=== PATIENT | female | born 1955 | race Caucasian/White ===

== ENCOUNTER 2016-04-22 17:19 | Observation (INO) ==
[2016-04-22] MEDS ORDERED: Ipratropium/Albuterol Neb 3 ML IH ONE (17:32)
[2016-04-22] MEDS ORDERED: PredniSONE 20 MG TABLET PO ONE (17:32)
--- NOTE | 2016-04-22 17:32 | Emergency Department Note ---
Disposition Clinical Impression: Acute exacerbation of chronic obstructive airways disease, Tachycardia Disposition: Admitted As Inpatient Condition: Fair URI/Sore Throat HPI - General Chief Complaint: ED Shortness of Breath/Dyspnea Stated Complaint: fever, productive cough, short of breath Time Seen by Provider: 04/22/16 17:28 Source: patient, family Mode of arrival: private vehicle Limitations: no limitations Nursing Notes Reviewed: Yes Vital Signs Reviewed: Yes - History of Present Illness HPI Narrative: Patient relates that for a couple days she has had increased shortness of breath , cough and shakiness. She states her cough is productive of a thick yellow phlegm. She states she has spiked a temperature as high as 101.1. She reports she has coughed to the point of vomiting a couple times and has had some nausea. She denies any abdominal or back pain. She denies diarrhea or any lower extremity swelling, immobilization or injury. She denies any chest pain other than with cough or deep breath. She states this feels like she has had before with her COPD. She is doing her routine inhalers and aerosols twice a day. She states she is finished an unknown antibiotic about a week ago but has had again increased respiratory symptoms. She states she was not on a course of a steroid with her last COPD exacerbation. The patient arrives on her own oxygen saturating at 95%. The patient is tachycardic with a heart rate around 140. It appears that her normal heart rate is about 110-120. Pt Subjective Complaint: fever, cough Onset (ago): day(s) Duration: gradually worsening Severity: moderate Improves with: vaporizer Worsens with: exertion, night If sputum, description: yellow Context: sick contacts, multiple patients with similar complaints Associated symptoms: Reports: fever, chills, cough, chest pain (With deep breath or cough only), shortness of breath, nausea, vomiting (With coughing). Denies: voice changes, myalgias, diaphoresis, headache, rhinorrhea, nasal congestion, sore throat, stiff neck, abdominal pain, diarrhea, dysuria, rash, epistaxis, ear pain Treatments prior to arrival: "cold medicine" - Related Data Home Medications Medication Instructions Recorded Confirmed Fluticasone Propionate [Flovent 1 puff IH BID 11/03/15 04/22/16 Diskus] Furosemide [Lasix] 40 mg PO DAILY 11/03/15 04/22/16 Levalbuterol [Xopenex INH] 2 puff IH Q6H PRN 11/03/15 04/22/16 Losartan [Cozaar] 25 mg PO DAILY 11/03/15 04/22/16 Montelukast [Singulair] 10 mg PO DAILY 11/03/15 04/22/16 Oxybutynin [Ditropan] 5 mg PO DAILY 11/03/15 04/22/16 Roflumilast [Daliresp] 500 mcg PO DAILY 11/03/15 04/22/16 Salmeterol Xinafoate [Serevent 1 puff IH BID 11/03/15 04/22/16 Diskus] Simvastatin [Zocor] 20 mg PO HS 11/03/15 04/22/16 Tiotropium [Spiriva] 18 mcg IH DAILY 11/03/15 04/22/16 Albuterol Neb [Proventil Neb] 2.5 mg IH TID 04/22/16 04/22/16 BuPROPion SR (12 HR) [Wellbutrin 150 mg PO BID 04/22/16 04/22/16 SR] Cholecalciferol (Vitamin D3) 1,000 unit PO DAILY 04/22/16 04/22/16 [Vitamin D] DiphenhydraMINE [Benadryl] 25 mg PO Q6H PRN 04/22/16 04/22/16 Fluticasone Propionate Nasal 1 spray NS DAILY PRN 04/22/16 04/22/16 [Flonase] HYDROcodone/Acet 7.5/325 mg [[place] 1 tab PO Q6H PRN 04/22/16 04/22/16 7.5-325 mg] Ibuprofen [Motrin] 600 mg PO Q6HR PRN 04/22/16 04/22/16 Metformin HCl [Glucophage] 1,000 mg PO BID 04/22/16 04/22/16 Nystatin POWDER [Nystop] 1 appl TP DAILY PRN 04/22/16 04/22/16 Potassium Chloride [Klor-Con 10] 10 meq PO DAILY 04/22/16 04/22/16 PredniSONE 10 mg PO DAILY 04/22/16 04/22/16 Ranitidine HCl [Zantac] 150 mg PO BID 04/22/16 04/22/16 Sertraline [Zoloft] 50 mg PO DAILY 04/22/16 04/22/16 Previous Rx's Medication Instructions Recorded Ascorbic Acid [Vitamin C] 500 mg PO DAILY #30 tablet 11/07/15 Ferrous Sulfate 325 mg PO DAILY #30 tablet 11/07/15 Fluconazole [Diflucan] 150 mg PO DAILY #5 tablet 11/07/15 Lactobacillus [Culturelle] 1 each PO BID #10 cap.sprink 11/07/15 Metoprolol XL (24 HR) Succ [Toprol 25 mg PO DAILY #30 tab.er.24h 11/07/15 XL] Allergies Allergy/AdvReac Type Severity Reaction Status Date / Time acetylcysteine Allergy Hives Verified 11/03/15 09:20 [From Mucomyst] ciprofloxacin [From Cipro] Allergy Hives Verified 11/03/15 09:20 clarithromycin [From Biaxin] Allergy Hives Verified 11/03/15 09:20 Erythromycin Base Allergy Hives Verified 11/03/15 09:26 fluticasone Allergy Hives Verified 11/03/15 09:26 [From Advair Diskus] lorazepam [From Ativan] Allergy Hives Verified 11/03/15 09:20 salmeterol Allergy Hives Verified 11/03/15 09:26 [From Advair Diskus] All systems ED: reviewed and negative except as stated. URI PMH - Past Medical History Medical history: Reports: CHF, COPD, diabetes, hyperlipidemia, hypertension Psychiatric history: Reports: no psych history - Social History Smoking Status: Former smoker Alcohol use: Reports: none Drug use: Reports: none Physical Exam - General Limitations: no limitations General appearance: alert, in no apparent distress - Head Head exam: atraumatic, normocephalic, normal inspection - Eye Eye exam: Present: normal appearance, PERRL, EOMI - ENT ENT exam: normal exam, normal oropharynx, mucous membranes moist - Neck Neck exam: Present: normal inspection, full ROM, trachea midline - Chest Chest inspection: Present: normal inspection, symmetric chest wall rise. Absent : tenderness - Respiratory Respiratory exam: Present: wheezes, prolonged expiratory phase. Absent: respiratory distress, stridor, accessory muscle use - Cardiovascular Cardiovascular exam: Present: regular rate, normal rhythm, tachycardia, normal heart sounds - Abdominal Exam Abdominal exam: Present: soft, Non-Tender, normal bowel sounds. Absent: tenderness, distention, guarding, rebound, rigidity - Extremities Exam Extremities exam: Present: normal inspection, full ROM, normal capillary refill. Absent: tenderness, pedal edema, calf tenderness - Expanded Lower Extremity Exam Neurovascular/Tendon exam: Present: normal capillary refill. Absent: motor deficit, sensory deficit, tendon deficit Gait: observed and normal - Back Exam Back exam: Present: normal inspection, full ROM. Absent: tenderness, CVA tenderness (R), CVA tenderness (L) - Neurological Exam Neurological exam: Present: alert, oriented X3, normal gait. Absent: motor sensory deficit - Psychiatric Psychiatric exam: Present: normal affect, normal mood - Skin Skin exam: Present: warm, dry, intact, normal color. Absent: diaphoresis, pallor Course Course Narrative: 1849: I discussed care with the patient and family. I subsequently discussed care with Dr. Nair agrees with her observation for continued outpatient treatment. Further orders are obtained and she is coordinated for observation. [facility] bed management has been contacted for bed placement. Vital Signs Temperature 98.9 F 04/22/16 17:20 Pulse Rate 141 04/22/16 17:20 Respiratory Rate 22 04/22/16 17:20 Blood Pressure 159/93 04/22/16 17:20 O2 Sat by Pulse Oximetry 95 04/22/16 17:20 Temperature 98.9 F 04/22/16 17:20 Pulse Rate 136 04/22/16 19:02 Respiratory Rate 17 04/22/16 19:02 Blood Pressure 167/70 04/22/16 19:02 O2 Sat by Pulse Oximetry 100 04/22/16 19:02 Oxygen Delivery Oxygen Delivery Nasal Cannula Upper Respiratory Infection - Differential Diagnosis Differential Diagnosis: Likely: upper respiratory infection, other viral infection, bronchitis, pneumonia - Medical Records Medical records reviewed: Yes I reviewed the patient's medical records. CT/CT chest w con IMPRESSION: 1. Improved left upper lobe consolidation with residual spiculated density likely related to a residual scar. An additional chest CT follow-up in 3 months is recommended to assure no underlying malignancy. 2. Emphysema. 3. Incidental note is made of atherosclerotic vascular calcifications and old granulomatous disease. 4. The previous CT scan question left suprahilar soft tissue fullness. No left hilar lymphadenopathy is identified on the current exam. D/ / Oleksandr Navas MD / Oleksandr Navas MD - Lab Data Lab results reviewed: Yes I reviewed the patient's lab results. Result diagrams: 04/22/16 18:10 04/22/16 18:10 Lab Results 04/22/16 04/22/16 04/22/16 Range/Units 18:10 18:10 18:10 WBC 11.2 H (4.3-11.1) K/mcL RBC 3.87 (3.82-4.97) M/mcL Hgb 11.2 L (11.5-15.4) g/dL Hct 35.4 (35.3-44.9) % MCV 91.5 (83.0-100.0) fL MCH 28.9 (28.0-33.3) pg MCHC 31.6 (31.6-35.5) g/dL RDW 13.9 (11.5-14.5) % Plt Count 365 (140-400) K/mcL MPV 9.1 L (9.4-12.4) fL Immature Gran % 0.8 (0-4) % Seg Neutrophils % 75.4 % Lymphocytes % 14.5 % Monocytes % 8.7 % Eosinophils % 0.4 % Basophils % 0.2 % Neutrophils # 8.4 (1.6-8.9) K/mcL Lymphocytes # 1.6 (0.6-4.6) K/mcL Monocytes # 1.0 (0.0-1.3) K/mcL Eosinophils # 0.0 (0.0-0.6) K/mcL Basophils # 0.0 (0.0-0.2) K/mcL Sodium 138 (136-145) mEq/L Potassium 3.8 (3.5-4.5) mEq/L Chloride 102 (98-109) mEq/L Carbon Dioxide 24 (19-29) mEq/L BUN 7 (7-20) mg/dL Creatinine 0.78 (0.57-1.11) mg/dL Est GFR ( Amer) > 60 (> 60) Est GFR (Non-Af Amer) > 60 (> 60) BUN/Creatinine Ratio 9 (6-26) Glucose 151 H (70-99) mg/dL Calculated Osmolality 287 (280-300) Calcium 9.2 (8.6-10.8) mg/dL Troponin I 0.01 (0-0.03) ng/mL - Radiology Data Radiology results reviewed: Yes I reviewed the patient's radiology results. Single view chest x-ray is performed. This does not demonstrate evidence for infiltrate, effusion, pneumothorax, foreign body or heart failure. The cardiac silhouette is normal. Patient has some fullness in the left hilum which is unchanged from previous x-rays or CAT scans. This will scar and hyperexpansion consistent with COPD. I do not see abnormality to the osseous structures of the chest. This is on my interpretation. Impressions Chest X-Ray 04/22/16 17:32 IMPRESSION: COPD with no acute pneumonia. D/ / 04/22/2016 17:53:45 Jos Silveira MD / jie Interpreting Provider: Jos Silveira MD - EKG Data EKG attestation: Yes I reviewed and interpreted this EKG. EKG shows normal: sinus rhythm, axis, intervals, QRS complexes, ST-T waves Rate: tachycardia (131) QRS morphology: poor R-wave progression Interpretation: no acute changes
[2016-04-22] MEDS ORDERED: 0.9 % Sodium Chloride 1,000 ML IVC ONE (17:37)
[2016-04-22 18:18] LABS: Basophils % 0.2 %; Eosinophils % 0.4 %; Hematocrit 35.4 % (35.3-44.9); Hemoglobin 11.2 g/dL (11.5-15.4); Immature Granulocytes % 0.8 % (0-4); Lymphocytes # 1.6 K/mcL (0.6-4.6); Lymphocytes % 14.5 %; Mean Corpuscular HGB Conc 31.6 g/dL (31.6-35.5); Mean Corpuscular Hemoglobin 28.9 pg (28.0-33.3); Mean Corpuscular Volume 91.5 fL (83.0-100.0); Mean Platelet Volume 9.1 fL (9.4-12.4); Monocytes % 8.7 %; Neutrophils # 8.4 K/mcL (1.6-8.9); Platelet Count 365 K/mcL (140-400); Red Blood Count 3.87 M/mcL (3.82-4.97); Red Cell Distribution Width 13.9 % (11.5-14.5); Segmented Neutrophils % 75.4 %
[2016-04-22 18:33] LABS: BUN/Creatinine Ratio 9 (6-26); Blood Urea Nitrogen 7 mg/dL (7-20); Calcium 9.2 mg/dL (8.6-10.8); Carbon Dioxide 24 mEq/L (19-29); Chloride 102 mEq/L (98-109); Glucose 151 mg/dL (70-99); Osmolality,Calculated 287 (280-300); Potassium 3.8 mEq/L (3.5-4.5); Sodium 138 mEq/L (136-145); eGFR For African Americans > 60 (> 60); eGFR For Non-African Americans > 60 (> 60)
[2016-04-22] MEDS ORDERED: Naloxone 0.4 MG/ML INJ IVP PRN (18:46)
[2016-04-22] MEDS ORDERED: Ibuprofen 600 MG TABLET PO PRN (18:48)
[2016-04-22] MEDS ORDERED: Nystatin POWDER 30 GM BOTTLE TP PRN (18:48)
[2016-04-22] MEDS ORDERED: Albuterol 2.5 MG/3 ML NEBULIZER IH SCH (21:00)
[2016-04-22] MEDS: Lactobacillus 1 EACH CAP.SPRINK PO SCH (21:57)
[2016-04-22] MEDS: *HR* Metformin 500 MG TABLET PO SCH (21:57)
[2016-04-22] MEDS: Famotidine 20 MG TABLET PO SCH (21:57)
[2016-04-22] MEDS: BuPROPion SR (12 HR) 150 MG TABLET PO SCH (21:58)
[2016-04-22] MEDS: *HR* HYDROcodone/Acet 7.5/325 mg TABLET PO PRN (21:58)
[2016-04-22] MEDS: 0.9 % Sodium Chloride 1,000 ML IVC SCH (22:21)
[2016-04-22] MEDS: Ipratropium/Albuterol Neb 3 ML IH SCH (22:22)
[2016-04-23] MEDS: Ipratropium/Albuterol Neb 3 ML IH SCH ×2 (04:14→09:46)
[2016-04-23] MEDS ORDERED: PredniSONE 20 MG TABLET PO SCH (08:00)
[2016-04-23] MEDS: *HR* HYDROcodone/Acet 7.5/325 mg TABLET PO PRN ×3 (08:45→21:08)
[2016-04-23] MEDS: Lactobacillus 1 EACH CAP.SPRINK PO SCH ×2 (08:47→20:38)
[2016-04-23] MEDS: Ascorbic Acid 500 MG TABLET PO SCH (08:47)
[2016-04-23] MEDS: Furosemide 20 MG TABLET PO SCH (08:48)
[2016-04-23] MEDS: BuPROPion SR (12 HR) 150 MG TABLET PO SCH ×2 (08:48→20:38)
[2016-04-23] MEDS: Cholecalciferol (D-3) 1,000 UNIT TABLET PO SCH (08:48)
[2016-04-23] MEDS: *HR* Metformin 500 MG TABLET PO SCH ×2 (08:49→20:38)
[2016-04-23] MEDS: (Roflumilast [Daliresp] 500 MCG) PO SCH (08:49)
[2016-04-23] MEDS: Famotidine 20 MG TABLET PO SCH (08:49)
[2016-04-23] MEDS: Metoprolol XL (24 HR) Succ 25 MG TAB.ER.24H PO SCH (08:49)
[2016-04-23] MEDS: Fluconazole 100 MG TABLET PO SCH (08:49)
[2016-04-23] MEDS: 0.9 % Sodium Chloride 1,000 ML IVC SCH (08:57)
--- NOTE | 2016-04-23 11:26 | Internal Med History&Physical ---
Date of Encounter: 04/23/16 Time of Encounter: 11:00 Assessment and Plan (1) Acute exacerbation of chronic obstructive airways disease Current visit: Yes Status: Acute She has been started on Augmentin and prednisone. Further workup will be done as needed. (2) Tachycardia Current visit: Yes Status: Acute We will monitor heart rate. Continue Toprol-XL. (3) Anemia Current visit: No Status: Acute Improved since discharge in October 2015. We will recheck anemia testing in a.m. Qualifiers: Anemia type: unspecified type Qualified Code(s): D64.9 - Anemia, unspecified (4) DM type 2 (diabetes mellitus, type 2) Current visit: No Status: Chronic Hemoglobin A1c was 7.5% on 11/04/2015. We will recheck in a.m. Continue Glucophage and do Accu-Cheks with SSI. 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 Qualifiers: Hypertension type: essential hypertension Qualified Code(s): I10 - Essential (primary) hypertension (6) Lung nodule Current visit: Yes Status: Acute We will order chest CT. Internal Medicine - H&P: HPI Chief complaint: Dyspnea Admitted From: Home Plans for Post Hospital Care: Home History of present illness: Ms. Carmen is a 61 year old female who came to emergency room stating she had increasing dyspnea the preceding week with acute worsening the day of admission. He had cough productive of thick yellow sputum and diffuse myalgias. She was evaluated emergency room and felt to have exacerbation of COPD. She was admitted to [facility] floor for ongoing care needs. She was hospitalized last at [facility] October 30.Her respiratory history is significant for having smoked from age [age] up to 2 packs per day. She has a diagnosis of COPD and wears oxygen at home 07/10. She has a diagnosis of SANDY and wear CPAP at bedtime. Her last chest CT was 11/27/2015. It was recommended a follow-up scan be done in 3 months to monitor a spiculated nodule in the left upper lobe. Past Med Surg Social Fam HX - Past Medical History Medical history: CHF, COPD, diabetes, hyperlipidemia, hypertension Psychiatric history: no psych history - Past Surgical History Surgical History: other - Social History Smoking Status: Former smoker Smokeless Tobacco Status: No Alcohol use: none Drug use: none - Family History Mother Living Status: Hx Family Cardiac Disorders: Yes Hx Family Respiratory Disorders: Yes Hx Family Endocrine Disorder: Yes Internal Medicine - H&P: Meds Fluticasone Propionate [Flovent Diskus] 1 puff IH BID 11/03/15 [History] Furosemide [Lasix] 40 mg PO DAILY 11/03/15 [History] Levalbuterol [Xopenex INH] 2 puff IH Q6H PRN 11/03/15 [History] Losartan [Cozaar] 25 mg PO DAILY 11/03/15 [History] Montelukast [Singulair] 10 mg PO DAILY 11/03/15 [History] Oxybutynin [Ditropan] 5 mg PO DAILY 11/03/15 [History] Roflumilast [Daliresp] 500 mcg PO DAILY 11/03/15 [History] Salmeterol Xinafoate [Serevent Diskus] 1 puff IH BID 11/03/15 [History] Simvastatin [Zocor] 20 mg PO HS 11/03/15 [History] Tiotropium [Spiriva] 18 mcg IH DAILY 11/03/15 [History] Ascorbic Acid [Vitamin C] 500 mg PO DAILY #30 tablet 11/07/15 [Rx] Ferrous Sulfate 325 mg PO DAILY #30 tablet 11/07/15 [Rx] Fluconazole [Diflucan] 150 mg PO DAILY #5 tablet 11/07/15 [Rx] Lactobacillus [Culturelle] 1 each PO BID #10 cap.sprink 11/07/15 [Rx] Metoprolol XL (24 HR) Succ [Toprol XL] 25 mg PO DAILY #30 tab.er.24h 11/07/15 [ Rx] Albuterol Neb [Proventil Neb] 2.5 mg IH TID 04/22/16 [History] BuPROPion SR (12 HR) [Wellbutrin SR] 150 mg PO BID 04/22/16 [History] Cholecalciferol (Vitamin D3) [Vitamin D] 1,000 unit PO DAILY 04/22/16 [History] DiphenhydraMINE [Benadryl] 25 mg PO Q6H PRN 04/22/16 [History] Fluticasone Propionate Nasal [Flonase] 1 spray NS DAILY PRN 04/22/16 [History] HYDROcodone/Acet 7.5/325 mg [[place] 7.5-325 mg] 1 tab PO Q6H PRN 04/22/16 [ History] Ibuprofen [Motrin] 600 mg PO Q6HR PRN 04/22/16 [History] Metformin HCl [Glucophage] 1,000 mg PO BID 04/22/16 [History] Nystatin POWDER [Nystop] 1 appl TP DAILY PRN 04/22/16 [History] Potassium Chloride [Klor-Con 10] 10 meq PO DAILY 04/22/16 [History] PredniSONE 10 mg PO DAILY 04/22/16 [History] Ranitidine HCl [Zantac] 150 mg PO BID 04/22/16 [History] Sertraline [Zoloft] 50 mg PO DAILY 04/22/16 [History] Allergies acetylcysteine [From Mucomyst] Allergy (Verified 11/03/15 09:20) Hives ciprofloxacin [From Cipro] Allergy (Verified 11/03/15 09:20) Hives clarithromycin [From Biaxin] Allergy (Verified 11/03/15 09:20) Hives Erythromycin Base Allergy (Verified 11/03/15 09:26) Hives fluticasone [From Advair Diskus] Allergy (Verified 11/03/15 09:26) Hives lorazepam [From Ativan] Allergy (Verified 11/03/15 09:20) Hives salmeterol [From Advair Diskus] Allergy (Verified 11/03/15 09:26) Hives All Systems PM: A 10-system review of systems was performed and is negative for pertinent findings except as documented above in the HPI. Review of systems: Gen.: Her weight has been stable past few months Cardiovascular: She has history of hypertension and congestive heart failure. She claims she had a heart catheter approximately 2010 at [facility] that did not further intervention. She denies DVT or pulmonary embolus Respiratory: As per history of present illness GI: She has gallstones but cannot have cholecystectomy secondary to poor surgical status. She denies disorders of her liver or exocrine pancreas : She denies hematuria dysuria or kidney stones Neurologic: She denies large distribution strokes or seizures Endocrine: She was diagnosed with DM 2 approximately 2001. She has hyperlipidemia but no known thyroid disease Hematology/oncology: She denies blood disorders or cancers. She had anemia on emergency room labs at the October hospitalization and was prescribed ferrous sulfate and vitamin C at discharge.. Psychiatric: She has anxiety and depression Musk skeletal: She has DJD. She has had steroid injections in her knees and shoulders. - Constitutional Vitals: Temp Pulse Resp BP Pulse Ox 98.2 F 110 18 125/60 94 L 04/23/16 10:58 04/23/16 10:58 04/23/16 10:58 04/23/16 10:58 04/23/16 10:58 Exam: Gen.: She is a well-developed well-nourished female who appears in no severe distress at present time sitting in a chair HEENT: Head is atraumatic and normocephalic. Eyes: EOMI. There is no scleral icterus. Mouth: Mucosa is moist. Neck: Supple and nontender. There is no thyromegaly or adenopathy noted. Heart: Regular without murmurs gallops or ectopics. Lungs: No wheezes or crackles are heard. She has diminished breath sounds diffusely Abdomen: Soft and nontender. No masses or guarding are noted. Exam is limited because she is in the seated position Extremities: There is no cyanosis edema or clubbing noted. Dorsalis pedis and posterior tibial pulses are 1-2 over 2 bilaterally. Neurologic: Mental status: She is talkative and a good historian. Cranial nerves: Smile is symmetric. Forehead wrinkles bilaterally. Tongue protrudes midline. EOMI. Motor: There is no pronator drift. Cerebellar: Finger to nose is intact bilaterally. Skin: Warm and dry Internal Med - H&P Results - Labs CBC & Chem 7: 04/22/16 18:10 04/22/16 18:10 - VTE Documentation of Mechanical Device: Graduated compression elastic hosiery
[2016-04-23] MEDS ORDERED: Famotidine 20 MG TABLET PO PRN (11:40)
--- NOTE | 2016-04-23 15:24 | Electrocardiograph Report ---
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
[2016-04-23] MEDS: PredniSONE 10 MG TABLET PO SCH (16:12)
[2016-04-23] MEDS ORDERED: Levalbuterol Neb 1.25 MG/3 ML ONE (16:17)
[2016-04-23] MEDS: XOPENEX IH SCH (16:23)
[2016-04-23] MEDS: Tiotropium 18 MCG inhalation IH SCH (16:26)
[2016-04-23] MEDS: Budesonide/Formoterol 160/4.5 MDI IH SCH ×2 (16:29→21:11)
[2016-04-23] MEDS: Levalbuterol Neb 1.25 MG/3 ML IH PRN (21:10)
[2016-04-24] MEDS: *HR* HYDROcodone/Acet 7.5/325 mg TABLET PO PRN ×2 (04:19→17:18)
[2016-04-24] MEDS: Levalbuterol Neb 1.25 MG/3 ML IH PRN ×4 (04:27→21:43)
[2016-04-24 06:03] LABS: Basophils % 0.2 %; Hematocrit 31.3 % (35.3-44.9); Hemoglobin 10.2 g/dL (11.5-15.4); Immature Granulocytes % 0.5 % (0-4); Lymphocytes % 23.9 %; Mean Corpuscular HGB Conc 32.6 g/dL (31.6-35.5); Mean Corpuscular Hemoglobin 29.2 pg (28.0-33.3); Mean Corpuscular Volume 89.7 fL (83.0-100.0); Mean Platelet Volume 9.2 fL (9.4-12.4); Monocytes % 11.7 %; Neutrophils # 5.4 K/mcL (1.6-8.9); Platelet Count 344 K/mcL (140-400); Red Blood Count 3.49 M/mcL (3.82-4.97); Red Cell Distribution Width 14.3 % (11.5-14.5); Segmented Neutrophils % 63.7 %
[2016-04-24 06:32] LABS: Alanine Aminotransferase 17 Units/L (0-55); Albumin 3.5 g/dL (3.5-5.0); Albumin/Globulin Ratio 1.2 (1.1-2.2); Alkaline Phosphatase 61 Units/L (38-126); Aspartate Amino Transferase 24 Units/L (5-34); BUN/Creatinine Ratio 16 (6-26); Bilirubin,Total 0.2 mg/dL (0.2-1.2); Blood Urea Nitrogen 12 mg/dL (7-20); Carbon Dioxide 24 mEq/L (19-29); Chloride 105 mEq/L (98-109); Glucose 145 mg/dL (70-99); Osmolality,Calculated 296 (280-300); Sodium 142 mEq/L (136-145); Total Protein 6.5 g/dL (6.0-8.3); eGFR For African Americans > 60 (> 60); eGFR For Non-African Americans > 60 (> 60)
[2016-04-24] MEDS: XOPENEX IH SCH ×3 (08:06→21:55)
[2016-04-24 08:39] LABS: Hemoglobin A1C 7.6 %
[2016-04-24] MEDS: *HR* Metformin 500 MG TABLET PO SCH ×2 (09:22→22:38)
[2016-04-24] MEDS: Fluconazole 100 MG TABLET PO SCH (09:23)
[2016-04-24] MEDS: BuPROPion SR (12 HR) 150 MG TABLET PO SCH ×2 (09:24→22:39)
[2016-04-24] MEDS: Lactobacillus 1 EACH CAP.SPRINK PO SCH ×2 (09:25→22:39)
[2016-04-24] MEDS: Metoprolol XL (24 HR) Succ 25 MG TAB.ER.24H PO SCH (09:25)
[2016-04-24] MEDS: Ascorbic Acid 500 MG TABLET PO SCH (09:26)
[2016-04-24] MEDS: PredniSONE 10 MG TABLET PO SCH ×2 (09:26→17:18)
[2016-04-24] MEDS: Furosemide 20 MG TABLET PO SCH (09:27)
[2016-04-24] MEDS: Cholecalciferol (D-3) 1,000 UNIT TABLET PO SCH (09:27)
[2016-04-24] MEDS: (Roflumilast [Daliresp] 500 MCG) PO SCH (09:27)
[2016-04-24] MEDS: Ondansetron 4 MG/2 ML VIAL IVP PRN ×2 (09:28→17:19)
[2016-04-24] MEDS: Budesonide/Formoterol 160/4.5 MDI IH SCH ×2 (09:41→21:42)
[2016-04-24] MEDS: Tiotropium 18 MCG inhalation IH SCH (09:41)
[2016-04-24 10:37] LABS: Folate 15.2 ng/mL (7.0-31.4)
--- NOTE | 2016-04-24 12:11 | Internal Med Progress Note ---
Date of Encounter: 04/24/16 Time of Encounter: 12:00 - Assessment and plan (1) Acute exacerbation of chronic obstructive airways disease Current Visit: Yes Status: Acute Assessment and plan: April 24. Continue Augmentin and prednisone (2) Tachycardia Current Visit: Yes Status: Acute Assessment and plan: April 24. Continue Toprol (3) Anemia Current Visit: No Status: Acute Assessment and plan: April 24. Hemoglobin has decreased 10.2. B12 and folate levels are normal. Ferritin and iron studies are pending. Qualifiers: Anemia type: unspecified type Qualified Code(s): D64.9 - Anemia, unspecified (4) DM type 2 (diabetes mellitus, type 2) Current Visit: No Status: Chronic Assessment and plan: April 24. Hemoglobin A1c was 7.6 today. 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 Continue Toprol and Cozaar Qualifiers: Hypertension type: essential hypertension Qualified Code(s): I10 - Essential (primary) hypertension (6) Lung nodule Current Visit: Yes Status: Acute Assessment and plan: April 24. There was further decrease in size of the left upper lobe nodule consistent with postinflammatory/postinfectious scar compared to the October 2015 study. No further follow-up is necessary. - Subjective Interval history: April 24. She has no new complaints. She had nausea earlier but that is somewhat improved. She does not feel her breathing has significantly improved. - Constitutional Vitals: Temp Pulse Resp BP Pulse Ox 98.3 F 103 18 120/78 93 L 04/24/16 10:31 04/24/16 10:31 04/24/16 10:31 04/24/16 10:31 04/24/16 10:31 Exam: She is sitting on the bed resting comfortably. Her affect is bright and cheerful. She does not appear significantly dyspneic or tachypnea. Her extremities show no pitting edema. I reviewed her medications and lab results. Internal Medicine: Result - Labs CBC & Chem 7: 04/24/16 05:48 04/24/16 05:48 Labs: Short CBC 04/24/16 Range/Units 05:48 WBC 8.5 (4.3-11.1) K/mcL Hgb 10.2 L (11.5-15.4) g/dL Hct 31.3 L (35.3-44.9) % Plt Count 344 (140-400) K/mcL Neutrophils # 5.4 (1.6-8.9) K/mcL BMP 04/24/16 05:48 Sodium 142 Potassium 4.0 Chloride 105 Carbon Dioxide 24 BUN 12 Creatinine 0.76 Glucose 145 H Calcium 9.0 Liver Function 04/24/16 Range/Units 05:48 Total Bilirubin 0.2 (0.2-1.2) mg/dL AST 24 (5-34) Units/L ALT 17 (0-55) Units/L Alkaline Phosphatase 61 (38-126) Units/L Albumin 3.5 (3.5-5.0) g/dL - Impressions Impressions Chest CT 04/23/16 11:40 IMPRESSION: Continued decrease in size of the left upper lobe nodule which now measures 6 x 3 mm compatible with postinflammatory/postinfectious scar. No further follow-up is necessary. D/ / 04/23/2016 14:34:41 Jayce Rodas MD / [email or web address] Interpreting Provider: Jayce Rodas MD - VTE Documentation of Mechanical Device: Graduated compression elastic hosiery Consult Discharge Plan - Plan Referrals: Amanda Arnold [Primary Care Provider] - 1 week
[2016-04-24 13:40] LABS: % Iron Saturation 7 % (15-50); Iron 27 mcg/dL (50-170); Transferrin 290 mg/dL (180-382)
[2016-04-24 14:03] LABS: Ferritin 46 ng/ml (5-204)
[2016-04-25 05:30] LABS: Basophils % 0.2 %; Hemoglobin 11.6 g/dL (11.5-15.4); Immature Granulocytes % 0.4 % (0-4); Lymphocytes % 22.4 %; Mean Corpuscular HGB Conc 32.2 g/dL (31.6-35.5); Mean Corpuscular Hemoglobin 29.1 pg (28.0-33.3); Mean Corpuscular Volume 90.5 fL (83.0-100.0); Mean Platelet Volume 9.6 fL (9.4-12.4); Monocytes % 11.4 %; Platelet Count 384 K/mcL (140-400); Red Blood Count 3.98 M/mcL (3.82-4.97); Red Cell Distribution Width 14.3 % (11.5-14.5); Segmented Neutrophils % 65.6 %
[2016-04-25] MEDS: Levalbuterol Neb 1.25 MG/3 ML IH PRN (06:06)
[2016-04-25 06:54] VITALS: BP 117/75
[2016-04-25] MEDS: Cholecalciferol (D-3) 1,000 UNIT TABLET PO SCH (07:49)
[2016-04-25] MEDS: Fluconazole 100 MG TABLET PO SCH (07:49)
[2016-04-25] MEDS: Metoprolol XL (24 HR) Succ 25 MG TAB.ER.24H PO SCH (07:49)
[2016-04-25] MEDS: PredniSONE 10 MG TABLET PO SCH (07:50)
[2016-04-25] MEDS: Furosemide 20 MG TABLET PO SCH (07:50)
[2016-04-25] MEDS: Lactobacillus 1 EACH CAP.SPRINK PO SCH (07:50)
[2016-04-25] MEDS: *HR* Metformin 500 MG TABLET PO SCH (07:50)
[2016-04-25] MEDS: Ascorbic Acid 500 MG TABLET PO SCH (07:51)
[2016-04-25] MEDS: BuPROPion SR (12 HR) 150 MG TABLET PO SCH (07:51)
[2016-04-25] MEDS: *HR* HYDROcodone/Acet 7.5/325 mg TABLET PO PRN (07:51)
[2016-04-25] MEDS: Ondansetron 4 MG/2 ML VIAL IVP PRN (08:57)
--- NOTE | 2016-04-25 10:03 | Discharge Summary ---
Date of Encounter: 04/25/16 Time of Encounter: 09:45 - Discharge Diagnosis (1) Acute exacerbation of chronic obstructive airways disease Priority: Primary Status: Acute (2) Tachycardia Priority: Secondary Status: Acute (3) Anemia Priority: Secondary Status: Resolved Qualifiers: Anemia type: unspecified type Qualified Code(s): D64.9 - Anemia, unspecified (4) DM type 2 (diabetes mellitus, type 2) Priority: Secondary Status: Chronic Qualifiers: Diabetes mellitus complication status: without complication Diabetes mellitus parts counterman insulin use: without parts counterman use Qualified Code(s): E11.9 - Type 2 diabetes mellitus without complications (5) Hypertension Priority: Secondary Status: Chronic Qualifiers: Hypertension type: essential hypertension Qualified Code(s): I10 - Essential (primary) hypertension (6) Lung nodule Priority: Secondary Status: Resolved - Discharge Medications Prescriptions: Amoxicillin/Clavulanate [Augmentin] 875 mg PO BIDWM #6 tablet Lactobacillus [Culturelle] 1 each PO BID #6 cap.sprink Home Medications: Fluticasone Propionate [Flovent Diskus] 1 puff IH BID 11/03/15 [History] Furosemide [Lasix] 40 mg PO DAILY 11/03/15 [History] Levalbuterol [Xopenex INH] 2 puff IH Q6H PRN 11/03/15 [History] Losartan [Cozaar] 25 mg PO DAILY 11/03/15 [History] Montelukast [Singulair] 10 mg PO DAILY 11/03/15 [History] Oxybutynin [Ditropan] 5 mg PO DAILY 11/03/15 [History] Roflumilast [Daliresp] 500 mcg PO DAILY 11/03/15 [History] Salmeterol Xinafoate [Serevent Diskus] 1 puff IH BID 11/03/15 [History] Simvastatin [Zocor] 20 mg PO HS 11/03/15 [History] Tiotropium [Spiriva] 18 mcg IH DAILY 11/03/15 [History] Fluconazole [Diflucan] 150 mg PO DAILY #5 tablet 11/07/15 [Rx] Metoprolol XL (24 HR) Succ [Toprol Xl] 25 mg PO DAILY #30 tab.er.24h 11/07/15 [ Rx] Albuterol Neb [Proventil Neb] 2.5 mg IH TID 04/22/16 [History] BuPROPion SR (12 HR) [Wellbutrin SR] 150 mg PO BID 04/22/16 [History] Cholecalciferol (Vitamin D3) [Vitamin D3] 1,000 unit PO DAILY 04/22/16 [History] DiphenhydraMINE [Benadryl] 25 mg PO Q6H PRN 04/22/16 [History] Fluticasone Propionate Nasal [Flonase] 1 spray NS DAILY PRN 04/22/16 [History] HYDROcodone/Acet 7.5/325 mg [[place] 7.5-325 mg] 1 tab PO Q6H PRN 04/22/16 [ History] Metformin HCl [Glucophage] 1,000 mg PO BID 04/22/16 [History] Nystatin POWDER [Nystop] 1 appl TP DAILY PRN 04/22/16 [History] Potassium Chloride [Klor-Con 10] 10 meq PO DAILY 04/22/16 [History] PredniSONE 10 mg PO DAILY 04/22/16 [History] Ranitidine HCl [Zantac] 150 mg PO BID 04/22/16 [History] Sertraline [Zoloft] 50 mg PO DAILY 04/22/16 [History] Amoxicillin/Clavulanate [Augmentin] 875 mg PO BIDWM #6 tablet 04/25/16 [Rx] Lactobacillus [Culturelle] 1 each PO BID #6 cap.sprink 04/25/16 [Rx] Allergies/Adverse Reactions: Allergies acetylcysteine [From Mucomyst] Allergy (Verified 11/03/15 09:20) Hives ciprofloxacin [From Cipro] Allergy (Verified 11/03/15 09:20) Hives clarithromycin [From Biaxin] Allergy (Verified 11/03/15 09:20) Hives Erythromycin Base Allergy (Verified 11/03/15 09:26) Hives fluticasone [From Advair Diskus] Allergy (Verified 11/03/15 09:26) Hives lorazepam [From Ativan] Allergy (Verified 11/03/15 09:20) Hives salmeterol [From Advair Diskus] Allergy (Verified 11/03/15 09:26) Hives Procedures/tests Complete & Pending: Procedures Performed prior 72 hours Category Date Time Status CT chest wo con [CT] Routine Cat Scan 04/23/16 11:40 Completed Date of admission: 04/22/16 19:03 Primary care physician: Amanda Arnold Consults: 04/22/16 22:15 Consult to Sr. Operations Manager [CONS] Routine Reason for SW Consult: D/C planning - pt has HH through [facility] - Patient Status Disposition: Home, Self-Care Condition: Fair Overall status at discharge: patient is progressing back to baseline - Discharge Instructions Follow Up With: Amanda Arnold [Primary Care Provider] - 1 week - Diet and Activity Activity: resume usual activities as tolerated, wear oxygen at all times Diet: advance to your usual diet Hospital course: Ms. Carmen is a 61 year old female who came to emergency room stating she had increasing dyspnea the preceding week with acute worsening the day of admission. She had cough productive of thick yellow sputum and diffuse myalgias. She was evaluated in emergency room and felt to have exacerbation of COPD. She was admitted to [facility] floor for ongoing care needs. Initial orders were written by the emergency room physician. I saw her on April 23 and performed a history and physical. She was started on Augmentin and prednisone in the emergency room. WBC normalized and she felt back to her baseline when I saw her on April 25. A chest CT was done to follow-up on previously seen lung nodules. There was no evidence of residual nodule but only a scar in the left upper lung area. No further follow-up scans were recommended. She did complain of intermittent nausea during her hospital stay. She stated this had been present for approximately 2 months. I told her she should discuss this with her primary care provider Amanda Arnold CNP for further workup. Her hemoglobin maira to 11.6 on the day of discharge. Her serum iron was 27 and transferrin 290 and ferritin 46. I will discontinue the vitamin C and ferrous sulfate since her hemoglobin has normalized. Hemoglobin A1c returned slightly elevated at 7.6%. I will let Amanda Arnold adjust medications as needed. On April 25 she felt she was stable for discharge home. She will follow with Amanda Arnold CNP in 1-2 weeks. - Time Spent with Patient Total time spent providing and/or coordinating discharge services: - Constitutional Vitals: Temp Pulse Resp BP Pulse Ox 99.0 F 102 19 117/75 95 04/25/16 06:53 02/09/17 06:53 04/25/16 06:53 04/25/16 06:53 04/25/16 08:02 - VTE Documentation of Mechanical Device: Graduated compression elastic hosiery
== END 2016-04-25 10:55 | disposition home or self-care (01) ==
LOC: INPPIK 17:19 → EMEROOPIK 17:19 → INPPIK 19:30
PROVIDERS: ADMIT Internal Medicine; ATTEND Internal Medicine

== ENCOUNTER 2016-05-15 11:26 | Inpatient (IN) ==
[2016-05-15] MEDS ORDERED: Levalbuterol Neb 1.25 MG/3 ML IH ONE (11:35)
--- NOTE | 2016-05-15 11:43 | Emergency Department Note ---
Disposition Clinical Impression: COPD exacerbation Pneumonia Qualifiers: Pneumonia type: due to unspecified organism Laterality: bilateral Lung location : lower lobe of lung Qualified Code(s): J18.9 - Pneumonia, unspecified organism Disposition: Admitted As Inpatient Condition: Fair Referrals: Amanda Arnold [Primary Care Provider] - Forms: ED Satisfaction Letter Time of Disposition: 14:40 SOB HPI - General Chief Complaint: ED Shortness of Breath/Dyspnea Stated Complaint: SOB Time Seen by Provider: 05/15/16 11:31 Source: patient Mode of arrival: wheelchair Limitations: no limitations Nursing Notes Reviewed: Yes Vital Signs Reviewed: Yes - History of Present Illness 61-year-old female with severe COPD who reports increased shortness of breath since discharge from [facility] on 05/11/69. She was hospitalized here on 04/20/16 for COPD exacerbation. She was seen here on 05/06/16 for shortness of breath and transferred to [facility] with COPD exacerbation and possible sepsis syndrome. Since being discharged she is becoming increasingly short of breath. Her visiting nurse was concerned today took her to her primary care physician and sent over here. She has a cough productive of minimal amount of yellow sputum. No fever. No chest pain. Her O2 sat on 2.5 L this morning was 89%. Pt Subjective Complaint: shortness of breath, cough Onset (ago): day(s) Context: recent illness (5) Severity: severe Consistency/Duration: constant, gradually worsening Improves with: nothing Worsens with: exertion, movement, coughing Known history of: COPD Associated symptoms: Reports: denies other symptoms Cough present: Yes Cough Description: Involuntary Cough Frequency: Intermittent Sputum production: Yes Sputum Amount: Scant Sputum Color: Yellow - Related Data Home oxygen amount: 2 liters (2.5) Home Medications Medication Instructions Recorded Confirmed Fluticasone Propionate [Flovent 1 puff IH BID 11/03/15 05/15/16 Diskus] Furosemide [Lasix] 40 mg PO DAILY 11/03/15 05/06/16 Levalbuterol [Xopenex INH] 2 puff IH Q6H PRN 11/03/15 05/15/16 Losartan [Cozaar] 25 mg PO DAILY 11/03/15 05/15/16 Montelukast [Singulair] 10 mg PO DAILY 11/03/15 05/15/16 Oxybutynin [Ditropan] 5 mg PO DAILY 11/03/15 05/15/16 Roflumilast [Daliresp] 500 mcg PO DAILY 11/03/15 05/15/16 Salmeterol Xinafoate [Serevent 1 puff IH BID 11/03/15 05/06/16 Diskus] Simvastatin [Zocor] 20 mg PO HS 11/03/15 05/15/16 Tiotropium [Spiriva] 18 mcg IH DAILY 11/03/15 05/15/16 Albuterol Neb [Proventil Neb] 2.5 mg IH TID 04/22/16 05/15/16 BuPROPion SR (12 HR) [Wellbutrin 150 mg PO BID 04/22/16 05/15/16 SR] Cholecalciferol (Vitamin D3) 1,000 unit PO DAILY 04/22/16 05/15/16 [Vitamin D3] DiphenhydraMINE [Benadryl] 25 mg PO Q6H PRN 04/22/16 05/15/16 Fluticasone Propionate Nasal 1 spray NS DAILY PRN 04/22/16 05/15/16 [Flonase] HYDROcodone/Acet 7.5/325 mg [[place] 1 tab PO Q6H PRN 04/22/16 05/15/16 7.5-325 mg] Metformin HCl [Glucophage] 1,000 mg PO BID 04/22/16 05/15/16 Nystatin POWDER [Nystop] 1 appl TP DAILY PRN 04/22/16 05/15/16 Potassium Chloride [Klor-Con 10] 10 meq PO DAILY 04/22/16 05/15/16 PredniSONE 10 mg PO DAILY 04/22/16 05/15/16 Ranitidine HCl [Zantac] 150 mg PO BID 04/22/16 05/15/16 Sertraline [Zoloft] 50 mg PO DAILY 04/22/16 05/15/16 Azithromycin [Zithromax] 250 mg PO DAILY 05/15/16 05/15/16 Glimepiride [Amaryl] 2 mg PO 0800 05/15/16 05/15/16 Previous Rx's Medication Instructions Recorded Metoprolol XL (24 HR) Succ [Toprol 25 mg PO DAILY #30 tab.er.24h 11/07/15 Xl] Allergies Allergy/AdvReac Type Severity Reaction Status Date / Time acetylcysteine Allergy Hives Verified 11/03/15 09:20 [From Mucomyst] ciprofloxacin [From Cipro] Allergy Hives Verified 11/03/15 09:20 clarithromycin [From Biaxin] Allergy Hives Verified 11/03/15 09:20 Erythromycin Base Allergy Hives Verified 11/03/15 09:26 fluticasone Allergy Hives Verified 11/03/15 09:26 [From Advair Diskus] lorazepam [From Ativan] Allergy Hives Verified 11/03/15 09:20 salmeterol Allergy Hives Verified 11/03/15 09:26 [From Advair Diskus] All systems ED: reviewed and negative except as stated. 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 Absent: scleral icterus, conjunctival injection - ENT ENT exam: normal oropharynx, mucous membranes moist - Neck Neck exam: Present: normal inspection, full ROM, trachea midline. Absent: lymphadenopathy - Chest Chest inspection: Present: normal inspection, symmetric chest wall rise - Respiratory Respiratory exam: Present: respiratory distress, wheezes (Moderate moderate bilateral expiratory), prolonged expiratory phase - Cardiovascular Cardiovascular exam: Present: regular rate, tachycardia. Absent: systolic murmur, diastolic murmur - Abdominal Exam Abdominal exam: Present: soft, Non-Tender - Extremities Exam Extremities exam: Present: normal inspection, full ROM, normal capillary refill. Absent: tenderness, pedal edema - Neurological Exam Neurological exam: Present: alert, oriented X3, normal gait - Psychiatric Psychiatric exam: Present: agitated, anxious - Skin Skin exam: Present: warm, dry, intact. Absent: cyanosis, diaphoresis Course - Reevaluation(s) Reevaluation #1: Accepted by Dr. Nair for admission. Time: 14:39 Vital Signs Temperature 98.2 F 05/15/16 11:28 Pulse Rate 117 05/15/16 11:28 Respiratory Rate 24 05/15/16 11:28 Blood Pressure 145/81 05/15/16 11:28 O2 Sat by Pulse Oximetry 92 L 05/15/16 11:28 Temperature 98.2 F 05/15/16 11:28 Pulse Rate 117 05/15/16 14:11 Respiratory Rate 20 05/15/16 14:11 Blood Pressure 135/57 05/15/16 14:11 O2 Sat by Pulse Oximetry 93 L 05/15/16 14:11 Oxygen Delivery Oxygen Delivery Nasal Cannula Shortness of Breath/Dyspnea - [facility] Narrative Medical decision making narrative: Radiographically she has some atelectasis and/or infiltrate. In light of her elevated white blood cell count I am going to cover her for pneumonia. Some of this could be due to her chronic steroid use. She is improved with the Xopenex and Solu-Medrol. Her heart rate is 1:15. She somewhat more comfortable. She is moving air better, she still has prolonged expiration and moderate wheezing. She will be admitted to a monitored bed with continued steroids, Xopenex, Zosyn and vancomycin. - Differential Diagnosis Likely: acute exacerbation of chronic obstructive airways disease, congestive heart failure, pneumonia, pulmonary embolism, pneumothorax, arrhythmia - Lab Data Result diagrams: 05/15/16 12:00 05/15/16 12:00 Lab Results 05/15/16 05/15/16 05/15/16 Range/Units 11:40 11:50 12:00 WBC 26.5 H (4.3-11.1) K/mcL RBC 4.25 (3.82-4.97) M/mcL Hgb 12.4 (11.5-15.4) g/dL Hct 38.7 (35.3-44.9) % MCV 91.1 (83.0-100.0) fL MCH 29.2 (28.0-33.3) pg MCHC 32.0 (31.6-35.5) g/dL RDW 14.1 (11.5-14.5) % Plt Count 432 H (140-400) K/mcL MPV 8.9 L (9.4-12.4) fL Immature Gran % 2.4 (0-4) % Seg Neutrophils % 88.2 % Lymphocytes % 5.7 % Monocytes % 3.4 % Eosinophils % 0.0 % Basophils % 0.3 % Neutrophils # 23.4 H (1.6-8.9) K/mcL Lymphocytes # 1.5 (0.6-4.6) K/mcL Monocytes # 0.9 (0.0-1.3) K/mcL Eosinophils # 0.0 (0.0-0.6) K/mcL Basophils # 0.1 (0.0-0.2) K/mcL Platelet Estimate Increased H (Normal) ABG pH 7.38 (7.32-7.45) pH Units ABG pCO2 54 H (35-45) mmHg ABG pO2 56 L (85-104) mmHg ABG HCO3 32.3 H (21-27) mEQ/L ABG Total CO2 33.9 H (20-26) mEq/L ABG O2 Saturation 87 L (95-98) % ABG Base Excess 7.2 H (-2.0 to 3.0) mEq/L Liter Flow 2.5 L/MIN Blood Gas Modality nc Inspired O2 29 % Sodium (136-145) mEq/L Potassium (3.5-4.5) mEq/L Chloride (98-109) mEq/L Carbon Dioxide (19-29) mEq/L BUN (7-20) mg/dL Creatinine (0.57-1.11) mg/dL Est GFR ( Amer) (> 60) Est GFR (Non-Af Amer) (> 60) BUN/Creatinine Ratio (6-26) Glucose (70-99) mg/dL Calculated Osmolality (280-300) Calcium (8.6-10.8) mg/dL Total Bilirubin (0.2-1.2) mg/dL AST (5-34) Units/L ALT (0-55) Units/L Alkaline Phosphatase (38-126) Units/L Troponin I (0-0.03) ng/mL B-Natriuretic Peptide (0-100) pg/mL Serum Total Protein (6.0-8.3) g/dL Albumin (3.5-5.0) g/dL Globulin (2.4-3.5) g/dL Albumin/Globulin Ratio (1.1-2.2) Urine Color Yellow (Yellow) Urine Clarity Clear (Clear) Urine pH 6.0 (5.0-8.0) pH Units Ur Specific Viper 1.010 (1.010-1.025) Urine Protein Negative (Neg-Trace) mg/dL Urine Glucose (UA) Normal (Normal) mg/dL Urine Ketones Negative (Negative) mg/dL Urine Blood Negative (Negative) Urine Nitrite Negative (Negative) Urine Bilirubin Negative (Negative) Urine Urobilinogen Normal (Normal) mg/dL Ur Leukocyte Esterase Negative (Negative) Ur Culture Indicated? NO (NO) 05/15/16 05/15/16 05/15/16 Range/Units 12:00 12:00 12:00 WBC (4.3-11.1) K/mcL RBC (3.82-4.97) M/mcL Hgb (11.5-15.4) g/dL Hct (35.3-44.9) % MCV (83.0-100.0) fL MCH (28.0-33.3) pg MCHC (31.6-35.5) g/dL RDW (11.5-14.5) % Plt Count (140-400) K/mcL MPV (9.4-12.4) fL Immature Gran % (0-4) % Seg Neutrophils % % Lymphocytes % % Monocytes % % Eosinophils % % Basophils % % Neutrophils # (1.6-8.9) K/mcL Lymphocytes # (0.6-4.6) K/mcL Monocytes # (0.0-1.3) K/mcL Eosinophils # (0.0-0.6) K/mcL Basophils # (0.0-0.2) K/mcL Platelet Estimate (Normal) ABG pH (7.32-7.45) pH Units ABG pCO2 (35-45) mmHg ABG pO2 (85-104) mmHg ABG HCO3 (21-27) mEQ/L ABG Total CO2 (20-26) mEq/L ABG O2 Saturation (95-98) % ABG Base Excess (-2.0 to 3.0) mEq/L Liter Flow L/MIN Blood Gas Modality Inspired O2 % Sodium 140 (136-145) mEq/L Potassium 4.1 (3.5-4.5) mEq/L Chloride 99 (98-109) mEq/L Carbon Dioxide 26 (19-29) mEq/L BUN 19 (7-20) mg/dL Creatinine 0.80 (0.57-1.11) mg/dL Est GFR ( Amer) > 60 (> 60) Est GFR (Non-Af Amer) > 60 (> 60) BUN/Creatinine Ratio 24 (6-26) Glucose 267 H (70-99) mg/dL Calculated Osmolality 302 H (280-300) Calcium 9.2 (8.6-10.8) mg/dL Total Bilirubin 0.5 (0.2-1.2) mg/dL AST 20 (5-34) Units/L ALT 47 (0-55) Units/L Alkaline Phosphatase 62 (38-126) Units/L Troponin I 0.01 (0-0.03) ng/mL B-Natriuretic Peptide 21 (0-100) pg/mL Serum Total Protein 7.0 (6.0-8.3) g/dL Albumin 3.7 (3.5-5.0) g/dL Globulin 3.3 (2.4-3.5) g/dL Albumin/Globulin Ratio 1.1 (1.1-2.2) Urine Color (Yellow) Urine Clarity (Clear) Urine pH (5.0-8.0) pH Units Ur Specific [place] (1.010-1.025) Urine Protein (Neg-Trace) mg/dL Urine Glucose (UA) (Normal) mg/dL Urine Ketones (Negative) mg/dL Urine Blood (Negative) Urine Nitrite (Negative) Urine Bilirubin (Negative) Urine Urobilinogen (Normal) mg/dL Ur Leukocyte Esterase (Negative) Ur Culture Indicated? (NO) - EKG Data EKG attestation: Yes I reviewed and interpreted this EKG. EKG results narrative: Sinus tachycardia, rate of 118, nonspecific ST-T changes. Rhythm strip shows sinus tachycardia with rate 118, MO interval 134 ms, QRS 92 ms with no other ectopy as interpreted by me. Compared to a tracing dated 04/17/16, the tachycardia is a change, the nonspecific T-wave flattening diffusely is a change.
[2016-05-15 11:58] LABS: Bilirubin,Urine Negative (Negative); Blood,Urine Negative (Negative); Clarity,Urine Clear (Clear); Color,Urine Yellow (Yellow); Glucose,Urine (UA) Normal (Normal); Ketones,Urine Negative (Negative); Leukocyte Esterase,Urine Negative (Negative); Nitrite,Urine Negative (Negative); Protein,Urine Negative (Neg-Trace); Urobilinogen,Urine Normal (Normal)
[2016-05-15 12:07] LABS: Basophils # 0.1 K/mcL (0.0-0.2); Basophils % 0.3 %; Hematocrit 38.7 % (35.3-44.9); Hemoglobin 12.4 g/dL (11.5-15.4); Immature Granulocytes % 2.4 % (0-4); Lymphocytes # 1.5 K/mcL (0.6-4.6); Lymphocytes % 5.7 %; Mean Corpuscular Hemoglobin 29.2 pg (28.0-33.3); Mean Corpuscular Volume 91.1 fL (83.0-100.0); Mean Platelet Volume 8.9 fL (9.4-12.4); Monocytes # 0.9 K/mcL (0.0-1.3); Monocytes % 3.4 %; Platelet Count 432 K/mcL (140-400); Red Blood Count 4.25 M/mcL (3.82-4.97); Red Cell Distribution Width 14.1 % (11.5-14.5); Segmented Neutrophils % 88.2 %
[2016-05-15 12:11] LABS: Neutrophils # 23.4 K/mcL (1.6-8.9)
[2016-05-15 12:26] LABS: Alanine Aminotransferase 47 Units/L (0-55); Albumin 3.7 g/dL (3.5-5.0); Albumin/Globulin Ratio 1.1 (1.1-2.2); Alkaline Phosphatase 62 Units/L (38-126); Aspartate Amino Transferase 20 Units/L (5-34); BUN/Creatinine Ratio 24 (6-26); Bilirubin,Total 0.5 mg/dL (0.2-1.2); Blood Urea Nitrogen 19 mg/dL (7-20); Calcium 9.2 mg/dL (8.6-10.8); Carbon Dioxide 26 mEq/L (19-29); Chloride 99 mEq/L (98-109); Globulin 3.3 g/dL (2.4-3.5); Glucose 267 mg/dL (70-99); Osmolality,Calculated 302 (280-300); Potassium 4.1 mEq/L (3.5-4.5); Sodium 140 mEq/L (136-145); eGFR For African Americans > 60 (> 60); eGFR For Non-African Americans > 60 (> 60)
[2016-05-15 12:39] LABS: Platelet Estimate Increased (Normal)
[2016-05-15] MEDS ORDERED: Vancomycin 1,000 MG in D5% in Water 250 ML IVPB ONE (13:05)
[2016-05-15] MEDS ORDERED: Piperacillin/Tazobactam 3.375 GM in D5% in Water (Mini-Bag+) 100 ML IVPB ONE (13:05)
[2016-05-15 13:50] LABS: ABG PH 7.38 pH Units (7.32-7.45)
[2016-05-15 13:51] LABS: ABG Base Excess 7.2 mEq/L (-2.0 to 3.0); ABG HCO3 32.3 mEQ/L (21-27); ABG Oxygen Saturation 87 % (95-98); ABG PCO2 54 mmHg (35-45); ABG PO2 56 mmHg (85-104); ABG TCO2 33.9 mEq/L (20-26); Blood Gas Liter Flow 2.5 L/MIN
[2016-05-15 13:52] LABS: Blood Gas FiO2 29 %
--- NOTE | 2016-05-15 14:16 | Electrocardiograph Report ---
[address] [id number] Test Date: 2016-05-15 Pat Name: Nancy Carmen Department: [id number] Room: Gender: F [employer] Supervisor: : [id number] Requested By: Cristobal Morris Order Number: [id number] Reading MD: Tiffany Verma Measurements Intervals [place] Rate: 118 P: 62 WV: 134 QRS: 50 QRSD: 92 T: 90 QT: 300 QTc: 370 Interpretive Statements SINUS TACHYCARDIA NONSPECIFIC ST \T\ T-WAVE ABNORMALITY ABNORMAL RHYTHM ECG Electronically Signed On 05-15-2016 14:14:37 EST by Tiffany Verma
[2016-05-15] MEDS ORDERED: Fluticasone Propionate Nasal 50 MCG/SPRAY BOTTLE NS PRN (15:57)
[2016-05-15] MEDS ORDERED: Nystatin POWDER 30 GM BOTTLE TP PRN (15:57)
[2016-05-15] MEDS ORDERED: Patient Taking Own Medication 1 EACH IH PRN (15:57)
[2016-05-15] MEDS ORDERED: Naloxone 0.4 MG/ML INJ IVP PRN (15:57)
[2016-05-15] MEDS: Levalbuterol Neb 1.25 MG/3 ML IH SCH ×2 (17:07→20:01)
[2016-05-15] MEDS: *HR* Metformin 500 MG TABLET PO SCH (17:18)
[2016-05-15] MEDS: *HR* HYDROcodone/Acet 7.5/325 mg TABLET PO PRN (19:41)
[2016-05-15] MEDS ORDERED: Dextrose Gel 15 GM PO PRN ×2 (19:56)
[2016-05-15] MEDS ORDERED: D5% in Water 1,000 ML IV PRN (19:56)
[2016-05-15] MEDS ORDERED: *HR* Dextrose 50 % in Water (Syg) 50 ML SYRINGE IVP PRN (19:56)
[2016-05-15] MEDS: Beclomethasone 80mcg MDI IH SCH (20:01)
[2016-05-15] MEDS: BuPROPion SR (12 HR) 150 MG TABLET PO SCH (20:32)
[2016-05-15] MEDS: Famotidine 20 MG TABLET PO SCH (20:33)
[2016-05-15] MEDS: Insulin LISPRO 300 UNITS/3 ML VIAL SQ SCH (20:33)
[2016-05-15] MEDS: Piperacillin/Tazobactam 3.375 GM in D5% in Water (Mini-Bag+) 100 ML IVPB SCH (23:01)
[2016-05-16] MEDS: Levalbuterol Neb 1.25 MG/3 ML IH SCH ×7 (00:17→20:29)
[2016-05-16] MEDS: Piperacillin/Tazobactam 3.375 GM in D5% in Water (Mini-Bag+) 100 ML IVPB SCH ×3 (06:55→23:36)
[2016-05-16] MEDS ORDERED: *HR* Enoxaparin 40 MG/0.4 ML SYRINGE SQ SCH (07:00)
[2016-05-16] MEDS: Beclomethasone 80mcg MDI IH SCH ×2 (07:19→20:29)
[2016-05-16] MEDS: Metoprolol XL (24 HR) Succ 25 MG TAB.ER.24H PO SCH (08:17)
[2016-05-16] MEDS: Insulin LISPRO 300 UNITS/3 ML VIAL SQ SCH ×4 (08:17→19:53)
[2016-05-16] MEDS: *HR* Metformin 500 MG TABLET PO SCH ×2 (08:19→17:43)
[2016-05-16] MEDS: BuPROPion SR (12 HR) 150 MG TABLET PO SCH ×2 (08:20→19:45)
[2016-05-16] MEDS: Famotidine 20 MG TABLET PO SCH ×2 (08:20→19:45)
[2016-05-16] MEDS: *HR* Glimepiride 2 MG TABLET PO SCH (08:21)
[2016-05-16] MEDS: Cholecalciferol (D-3) 1,000 UNIT TABLET PO SCH (08:22)
[2016-05-16] MEDS: DALIRESP 500MCG PO SCH (08:24)
--- NOTE | 2016-05-16 12:37 | Internal Med History&Physical ---
Date of Encounter: 05/16/16 Time of Encounter: 12:15 Assessment and Plan (1) Pneumonia Current visit: Yes Status: Acute She has been started on Zosyn and vancomycin. We will add lactobacillus and recheck labs in a.m. Qualifiers: Pneumonia type: due to unspecified organism Laterality: bilateral Lung location: lower lobe of lung Qualified Code(s): J18.9 - Pneumonia, unspecified organism (2) Acute exacerbation of chronic obstructive airways disease Current visit: No Status: Acute Continue antibiotics, Solu-Medrol, and home respiratory regimen. (3) DM type 2 (diabetes mellitus, type 2) Current visit: No Status: Chronic Hemoglobin A1c was 7.6% on April 2016. Continue present regimen with Accu- Cheks and SSI. Qualifiers: Diabetes mellitus complication status: without complication Diabetes mellitus terminal makeup operator insulin use: without fci use Qualified Code(s): E11.9 - Type 2 diabetes mellitus without complications Internal Medicine - H&P: HPI Chief complaint: Dyspnea Admitted From: Home Plans for Post Hospital Care: Home History of present illness: Ms. Carmen is a 61 year old female who came to emergency room complaining of progressive dyspnea over the last few days. She had been hospitalized at [facility] April 23- for exacerbation of COPD. She reports becoming dyspneic and returning to [facility] on May 06. She was diagnosed with influenza A and was transferred to [facility]. She was treated with Tamiflu until discharge May 11. Her dyspnea did not resolve however with Tamiflu treatment. She went to her PCP Amanda Arnold CNP on May 15 and was directed to come to [facility] emergency room. She was evaluated with chest x-ray showing bilateral lower lobe airspace disease right greater than left. WBC was elevated at 26.5 with left shift. She was admitted to [facility] floor for ongoing care needs. Her respiratory history is significant for having smoked from age [age] up to 2 packs per day. She has a diagnosis of COPD and wears oxygen at home 07/10. She has a diagnosis of SANDY and wear CPAP at bedtime. Her last chest CT was 2016 showed scar but no concerning adenopathy or masses. Past Med Surg Social Fam HX - Past Medical History Medical history: CHF, COPD, diabetes, hyperlipidemia, hypertension Psychiatric history: no psych history - Past Surgical History Surgical History: other - Social History Smoking Status: Former smoker Smokeless Tobacco Status: No Alcohol use: none Drug use: none - Family History Mother Living Status: Hx Family Cardiac Disorders: Yes Hx Family Respiratory Disorders: Yes Hx Family Endocrine Disorder: Yes Internal Medicine - H&P: Meds Fluticasone Propionate [Flovent Diskus] 1 puff IH BID 11/03/15 [History] Furosemide [Lasix] 40 mg PO DAILY 11/03/15 [History] Levalbuterol [Xopenex INH] 2 puff IH Q6H PRN 11/03/15 [History] Losartan [Cozaar] 25 mg PO DAILY 11/03/15 [History] Montelukast [Singulair] 10 mg PO DAILY 11/03/15 [History] Oxybutynin [Ditropan] 5 mg PO DAILY 11/03/15 [History] Roflumilast [Daliresp] 500 mcg PO DAILY 11/03/15 [History] Salmeterol Xinafoate [Serevent Diskus] 1 puff IH BID 11/03/15 [History] Simvastatin [Zocor] 20 mg PO HS 11/03/15 [History] Tiotropium [Spiriva] 18 mcg IH DAILY 11/03/15 [History] Metoprolol XL (24 HR) Succ [Toprol Xl] 25 mg PO DAILY #30 tab.er.24h 11/07/15 [ Rx] Albuterol Neb [Proventil Neb] 2.5 mg IH TID 04/22/16 [History] BuPROPion SR (12 HR) [Wellbutrin SR] 150 mg PO BID 04/22/16 [History] Cholecalciferol (Vitamin D3) [Vitamin D3] 1,000 unit PO DAILY 04/22/16 [History] DiphenhydraMINE [Benadryl] 25 mg PO Q6H PRN 04/22/16 [History] Fluticasone Propionate Nasal [Flonase] 1 spray NS DAILY PRN 04/22/16 [History] HYDROcodone/Acet 7.5/325 mg [[place] 7.5-325 mg] 1 tab PO Q6H PRN 04/22/16 [ History] Metformin HCl [Glucophage] 1,000 mg PO BID 04/22/16 [History] Nystatin POWDER [Nystop] 1 appl TP DAILY PRN 04/22/16 [History] Potassium Chloride [Klor-Con 10] 10 meq PO DAILY 04/22/16 [History] PredniSONE 10 mg PO DAILY 04/22/16 [History] Ranitidine HCl [Zantac] 150 mg PO BID 04/22/16 [History] Sertraline [Zoloft] 50 mg PO DAILY 04/22/16 [History] Azithromycin [Zithromax] 250 mg PO DAILY 05/15/16 [History] Glimepiride [Amaryl] 2 mg PO 0800 05/15/16 [History] Allergies acetylcysteine [From Mucomyst] Allergy (Verified 11/03/15 09:20) Hives ciprofloxacin [From Cipro] Allergy (Verified 11/03/15 09:20) Hives clarithromycin [From Biaxin] Allergy (Verified 11/03/15 09:20) Hives Erythromycin Base Allergy (Verified 11/03/15 09:26) Hives fluticasone [From Advair Diskus] Allergy (Verified 11/03/15 09:26) Hives lorazepam [From Ativan] Allergy (Verified 11/03/15 09:20) Hives salmeterol [From Advair Diskus] Allergy (Verified 11/03/15 09:26) Hives All Systems PM: A 10-system review of systems was performed and is negative for pertinent findings except as documented above in the HPI. Review of systems: Review of systems from her recent April 2016 [facility] admission were reviewed and revised as below. Gen.: Her weight has been stable past few months Cardiovascular: She has history of hypertension and congestive heart failure. She claims she had a heart catheter approximately 2010 at [facility] that did not require further intervention. She denies DVT or pulmonary embolus Respiratory: As per history of present illness GI: She has gallstones but cannot have cholecystectomy secondary to poor surgical status. She denies disorders of her liver or exocrine pancreas : She denies hematuria dysuria or kidney stones Neurologic: She denies large distribution strokes or seizures Endocrine: She was diagnosed with DM 2 approximately 2001. Hemoglobin A1c was 7.6% on 04/24/2016. She has hyperlipidemia but no known thyroid disease Hematology/oncology: She denies blood disorders or cancers. She had anemia on emergency room labs at the October hospitalization and was prescribed ferrous sulfate and vitamin C at discharge. Hemoglobin in emergency room was 12.4. Psychiatric: She has anxiety and depression Musk skeletal: She has DJD. She has had steroid injections in her knees and shoulders. - Constitutional Vitals: Temp Pulse Resp BP Pulse Ox 98.0 F 120 18 107/80 95 05/16/16 08:00 05/16/16 08:00 05/16/16 10:19 05/16/16 08:00 05/16/16 10:19 Exam: Gen.: She is a well-developed well-nourished female who appears in minimal distress at present time. HEENT: Head is atraumatic and normocephalic. Eyes: EOMI. There is no scleral icterus. Mouth: Mucosa is moist. Neck: Supple and nontender. There is no thyromegaly or adenopathy noted. Heart: Regular without murmurs gallops or ectopics. Lungs: No wheezes or crackles are heard. She has diminished breaths as diffusely. Abdomen: Soft and nontender. Exam is limited because she is in the seated position. Extremities: There is no cyanosis edema or clubbing noted. Dorsalis pedis and posterior tibial pulses are trace palpable bilaterally. Her feet are warm to touch. Neurologic: Mental status: She is talkative and a good historian. Cranial nerves: Smile is symmetric. Forehead wrinkles bilaterally. Tongue protrudes midline. EOMI. Motor: There is no pronator drift. Cerebellar: Finger to nose is intact bilaterally. Skin: Warm and dry Internal Med - H&P Results - Labs CBC & Chem 7: 05/15/16 12:00 05/15/16 12:00
[2016-05-16] MEDS: Vancomycin 1,000 MG in D5% in Water 250 ML IVPB SCH (12:47)
[2016-05-16] MEDS: Ondansetron 4 MG/2 ML VIAL IVP SCH ×3 (14:58→23:40)
[2016-05-16] MEDS: Lactobacillus 1 EACH CAP.SPRINK PO SCH (19:45)
[2016-05-17] MEDS: Levalbuterol Neb 1.25 MG/3 ML IH SCH ×3 (00:11→08:47)
[2016-05-17] MEDS: Ondansetron 4 MG/2 ML VIAL IVP SCH ×4 (03:41→17:36)
[2016-05-17] MEDS: Piperacillin/Tazobactam 3.375 GM in D5% in Water (Mini-Bag+) 100 ML IVPB SCH ×3 (05:26→23:45)
[2016-05-17] MEDS: *HR* Enoxaparin 40 MG/0.4 ML SYRINGE SQ SCH (05:27)
[2016-05-17 05:45] LABS: BUN/Creatinine Ratio 40 (6-26); Blood Urea Nitrogen 29 mg/dL (7-20); Calcium 9.5 mg/dL (8.6-10.8); Carbon Dioxide 24 mEq/L (19-29); Chloride 103 mEq/L (98-109); Glucose 175 mg/dL (70-99); Osmolality,Calculated 304 (280-300); Potassium 4.8 mEq/L (3.5-4.5); Sodium 142 mEq/L (136-145); eGFR For African Americans > 60 (> 60); eGFR For Non-African Americans > 60 (> 60)
[2016-05-17] MEDS: Metoprolol XL (24 HR) Succ 25 MG TAB.ER.24H PO SCH (07:52)
[2016-05-17] MEDS: Lactobacillus 1 EACH CAP.SPRINK PO SCH ×2 (07:53→21:14)
[2016-05-17] MEDS: *HR* Glimepiride 2 MG TABLET PO SCH (07:54)
[2016-05-17] MEDS: Famotidine 20 MG TABLET PO SCH ×2 (07:55→21:14)
[2016-05-17] MEDS: Cholecalciferol (D-3) 1,000 UNIT TABLET PO SCH (07:55)
[2016-05-17] MEDS: BuPROPion SR (12 HR) 150 MG TABLET PO SCH ×2 (07:55→21:14)
[2016-05-17] MEDS: *HR* Metformin 500 MG TABLET PO SCH ×2 (07:56→17:34)
[2016-05-17] MEDS: Insulin LISPRO 300 UNITS/3 ML VIAL SQ SCH ×4 (07:58→21:14)
[2016-05-17] MEDS: Beclomethasone 80mcg MDI IH SCH ×2 (08:48→21:10)
[2016-05-17 09:38] LABS: Hematocrit 37.1 % (35.3-44.9); Hemoglobin 11.6 g/dL (11.5-15.4); Mean Corpuscular HGB Conc 31.3 g/dL (31.6-35.5); Mean Corpuscular Hemoglobin 29.1 pg (28.0-33.3); Mean Corpuscular Volume 93.2 fL (83.0-100.0); Mean Platelet Volume 9.1 fL (9.4-12.4); Platelet Count 434 K/mcL (140-400); Red Blood Count 3.98 M/mcL (3.82-4.97); Red Cell Distribution Width 14.2 % (11.5-14.5)
--- NOTE | 2016-05-17 09:56 | Internal Med Progress Note ---
Date of Encounter: 05/17/16 Time of Encounter: 09:40 - Assessment and plan (1) Pneumonia Current Visit: Yes Status: Acute Assessment and plan: May 17. Continue Zosyn and vancomycin with lactobacillus. Will discontinue Solu-Medrol and place her on prednisone Qualifiers: Pneumonia type: due to unspecified organism Laterality: bilateral Lung location: lower lobe of lung Qualified Code(s): J18.9 - Pneumonia, unspecified organism (2) Acute exacerbation of chronic obstructive airways disease Current Visit: No Status: Acute Assessment and plan: May 17. As above (3) DM type 2 (diabetes mellitus, type 2) Current Visit: No Status: Chronic Assessment and plan: May 17. Continue Amaryl and Glucophage with Accu-Cheks and SSI. Will change from Solu-Medrol to oral prednisone. Qualifiers: Diabetes mellitus complication status: without complication Diabetes mellitus termite control servicer insulin use: without termite control servicer use Qualified Code(s): E11.9 - Type 2 diabetes mellitus without complications - Subjective Interval history: May 17. She has no new complaints. She does not feel significantly improved from admission. - Constitutional Vitals: Temp Pulse Resp BP Pulse Ox 98.3 F 108 16 116/75 96 05/17/16 07:57 05/17/16 07:57 05/17/16 08:48 05/17/16 07:57 05/17/16 08:48 Exam: She is resting fairly comfortably in bed. Her lungs show egophony in the upper lung luis posteriorly bilaterally. There is no wheezing or inspiratory crackles heard. There is no extremity edema. I reviewed her medications and lab results. Internal Medicine: Result - Labs CBC & Chem 7: 05/17/16 09:27 05/17/16 04:40 Labs: Short CBC 05/17/16 Range/Units 09:27 WBC 30.4 H* (4.3-11.1) K/mcL Hgb 11.6 (11.5-15.4) g/dL Hct 37.1 (35.3-44.9) % Plt Count 434 H (140-400) K/mcL BMP 05/17/16 04:40 Sodium 142 Potassium 4.8 H Chloride 103 Carbon Dioxide 24 BUN 29 H D Creatinine 0.72 Glucose 175 H Calcium 9.5 - ABG Interpretation ABG results: ABG ABG pH 7.38 pH Units (7.32-7.45) 05/15/16 11:40 ABG pCO2 54 mmHg (35-45) H 05/15/16 11:40 ABG pO2 56 mmHg (85-104) L 05/15/16 11:40 ABG O2 Saturation 87 % (95-98) L 05/15/16 11:40 Consult Discharge Plan - Plan Referrals: Amanda Arnold [Primary Care Provider] - 1 week
[2016-05-17 10:18] LABS: Lymphocytes # 1.8 K/mcL (0.6-4.6); Neutrophils # 28.6 K/mcL (1.6-8.9)
[2016-05-17] MEDS: DALIRESP 500MCG PO SCH (10:51)
[2016-05-17] MEDS: *HR* HYDROcodone/Acet 7.5/325 mg TABLET PO PRN (11:16)
[2016-05-17] MEDS: Vancomycin 1,000 MG in D5% in Water 250 ML IVPB SCH ×3 (12:11→23:45)
[2016-05-17] MEDS: Levalbuterol Neb 1.25 MG/3 ML IH PRN ×2 (13:05→21:09)
[2016-05-17] MEDS: PredniSONE 20 MG TABLET PO SCH (17:34)
[2016-05-18] MEDS: Piperacillin/Tazobactam 3.375 GM in D5% in Water (Mini-Bag+) 100 ML IVPB SCH ×4 (02:05→21:59)
[2016-05-18 05:27] LABS: Hematocrit 35.6 % (35.3-44.9); Hemoglobin 11.1 g/dL (11.5-15.4); Mean Corpuscular HGB Conc 31.2 g/dL (31.6-35.5); Mean Corpuscular Hemoglobin 28.8 pg (28.0-33.3); Mean Corpuscular Volume 92.5 fL (83.0-100.0); Platelet Count 393 K/mcL (140-400); Red Blood Count 3.85 M/mcL (3.82-4.97); Red Cell Distribution Width 14.1 % (11.5-14.5)
[2016-05-18 05:53] LABS: BUN/Creatinine Ratio 34 (6-26); Blood Urea Nitrogen 23 mg/dL (7-20); Calcium 9.7 mg/dL (8.6-10.8); Carbon Dioxide 30 mEq/L (19-29); Chloride 104 mEq/L (98-109); Glucose 99 mg/dL (70-99); Osmolality,Calculated 302 (280-300); Potassium 4.4 mEq/L (3.5-4.5); Sodium 144 mEq/L (136-145); eGFR For African Americans > 60 (> 60); eGFR For Non-African Americans > 60 (> 60)
[2016-05-18] MEDS: *HR* Enoxaparin 40 MG/0.4 ML SYRINGE SQ SCH (05:55)
[2016-05-18 06:00] LABS: Lymphocytes # 2.1 K/mcL (0.6-4.6); Monocytes # 2.1 K/mcL (0.0-1.3); Neutrophils # 21.5 K/mcL (1.6-8.9)
[2016-05-18 06:01] LABS: Platelet Estimate Increased (Normal)
[2016-05-18] MEDS: *HR* HYDROcodone/Acet 7.5/325 mg TABLET PO PRN ×2 (06:03→22:08)
[2016-05-18] MEDS: Levalbuterol Neb 1.25 MG/3 ML IH PRN ×3 (08:36→18:05)
[2016-05-18] MEDS: Beclomethasone 80mcg MDI IH SCH ×2 (08:39→22:54)
[2016-05-18] MEDS: Ondansetron 4 MG/2 ML VIAL IVP PRN ×2 (09:14→17:24)
--- NOTE | 2016-05-18 09:20 | Internal Med Progress Note ---
Date of Encounter: 05/18/16 Time of Encounter: 09:10 - Assessment and plan (1) Pneumonia Current Visit: Yes Status: Acute Assessment and plan: May 17. Continue Zosyn and vancomycin with lactobacillus. Will discontinue Solu-Medrol and place her on prednisone May 18. Continue present regimen. Anticipate discharge into swing bed tomorrow for ongoing therapy. Qualifiers: Pneumonia type: due to unspecified organism Laterality: bilateral Lung location: lower lobe of lung Qualified Code(s): J18.9 - Pneumonia, unspecified organism (2) Acute exacerbation of chronic obstructive airways disease Current Visit: No Status: Acute Assessment and plan: May 17. As above (3) DM type 2 (diabetes mellitus, type 2) Current Visit: No Status: Chronic Assessment and plan: May 17. Continue Amaryl and Glucophage with Accu-Cheks and SSI. Will change from Solu-Medrol to oral prednisone. May 18. Continue Amaryl and Glucophage with Accu-Cheks and SSI. Blood sugars are overall improved. Qualifiers: Diabetes mellitus complication status: without complication Diabetes mellitus senior living insulin use: without senior living use Qualified Code(s): E11.9 - Type 2 diabetes mellitus without complications - Subjective Interval history: May 17. She has no new complaints. She does not feel significantly improved from admission. May 18. She feels slightly improved today - Constitutional Vitals: Temp Pulse Resp BP Pulse Ox 97.8 F 104 18 141/72 99 05/18/16 06:47 05/18/16 06:47 05/18/16 08:40 05/18/16 06:47 05/18/16 08:40 Exam: She is sitting in a chair resting comfortably. Her lungs show a few scattered rhonchi. She coughed occasionally during examination. No wheezing is heard. Heart is regular without murmurs gallops or ectopics. I reviewed her medications and lab results. Internal Medicine: Result - Labs CBC & Chem 7: 05/18/16 04:59 05/18/16 04:59 Labs: Short CBC 05/17/16 05/18/16 Range/Units 09:27 04:59 WBC 30.4 H* 25.6 H (4.3-11.1) K/mcL Hgb 11.6 11.1 L (11.5-15.4) g/dL Hct 37.1 35.6 (35.3-44.9) % Plt Count 434 H 393 (140-400) K/mcL Neutrophils # 28.6 H 21.5 H (1.6-8.9) K/mcL BMP 05/18/16 04:59 Sodium 144 Potassium 4.4 Chloride 104 Carbon Dioxide 30 H BUN 23 H Creatinine 0.68 Glucose 99 Calcium 9.7 - ABG Interpretation ABG results: ABG ABG pH 7.38 pH Units (7.32-7.45) 05/15/16 11:40 ABG pCO2 54 mmHg (35-45) H 05/15/16 11:40 ABG pO2 56 mmHg (85-104) L 05/15/16 11:40 ABG O2 Saturation 87 % (95-98) L 05/15/16 11:40 Consult Discharge Plan - Plan Referrals: Amanda Arnold [Primary Care Provider] - 1 week
[2016-05-18] MEDS: *HR* Metformin 500 MG TABLET PO SCH ×2 (11:27→17:22)
[2016-05-18] MEDS: Cholecalciferol (D-3) 1,000 UNIT TABLET PO SCH (11:28)
[2016-05-18] MEDS: Famotidine 20 MG TABLET PO SCH ×2 (11:28→21:58)
[2016-05-18] MEDS: BuPROPion SR (12 HR) 150 MG TABLET PO SCH ×2 (11:28→21:58)
[2016-05-18] MEDS: PredniSONE 20 MG TABLET PO SCH ×2 (11:28→17:22)
[2016-05-18] MEDS: Lactobacillus 1 EACH CAP.SPRINK PO SCH ×2 (11:28→21:58)
[2016-05-18] MEDS: Metoprolol XL (24 HR) Succ 25 MG TAB.ER.24H PO SCH (11:28)
[2016-05-18] MEDS: Vancomycin 1,000 MG in D5% in Water 250 ML IVPB SCH (11:31)
[2016-05-18] MEDS: Insulin LISPRO 300 UNITS/3 ML VIAL SQ SCH ×4 (12:15→21:59)
[2016-05-18] MEDS: DALIRESP 500MCG PO SCH (12:16)
[2016-05-18] MEDS: *HR* Glimepiride 2 MG TABLET PO SCH (12:16)
[2016-05-19] MEDS: Vancomycin 1,000 MG in D5% in Water 250 ML IVPB SCH (01:45)
[2016-05-19] MEDS: *HR* Enoxaparin 40 MG/0.4 ML SYRINGE SQ SCH (07:19)
[2016-05-19] MEDS: Piperacillin/Tazobactam 3.375 GM in D5% in Water (Mini-Bag+) 100 ML IVPB SCH (07:20)
[2016-05-19] MEDS: *HR* HYDROcodone/Acet 7.5/325 mg TABLET PO PRN (07:29)
[2016-05-19] MEDS: Levalbuterol Neb 1.25 MG/3 ML IH PRN ×2 (08:48→12:45)
[2016-05-19] MEDS: Beclomethasone 80mcg MDI IH SCH (08:50)
[2016-05-19] MEDS: *HR* Metformin 500 MG TABLET PO SCH (08:52)
[2016-05-19] MEDS: Lactobacillus 1 EACH CAP.SPRINK PO SCH (08:53)
[2016-05-19] MEDS: Cholecalciferol (D-3) 1,000 UNIT TABLET PO SCH (08:53)
[2016-05-19] MEDS: Famotidine 20 MG TABLET PO SCH (08:53)
[2016-05-19] MEDS: Metoprolol XL (24 HR) Succ 25 MG TAB.ER.24H PO SCH (08:53)
[2016-05-19] MEDS: PredniSONE 20 MG TABLET PO SCH (08:54)
[2016-05-19] MEDS: Insulin LISPRO 300 UNITS/3 ML VIAL SQ SCH ×2 (10:01→11:58)
[2016-05-19] MEDS: *HR* Glimepiride 2 MG TABLET PO SCH (10:01)
[2016-05-19] MEDS: BuPROPion SR (12 HR) 150 MG TABLET PO SCH (10:02)
[2016-05-19] MEDS: DALIRESP 500MCG PO SCH (10:02)
--- NOTE | 2016-05-19 10:40 | Discharge Summary ---
Date of Encounter: 05/19/16 Time of Encounter: 10:20 - Discharge Diagnosis (1) Pneumonia Priority: Primary Status: Acute Qualifiers: Pneumonia type: due to unspecified organism Laterality: bilateral Lung location: lower lobe of lung Qualified Code(s): J18.9 - Pneumonia, unspecified organism (2) Acute exacerbation of chronic obstructive airways disease Priority: Secondary Status: Acute (3) DM type 2 (diabetes mellitus, type 2) Priority: Secondary Status: Chronic Qualifiers: Diabetes mellitus complication status: without complication Diabetes mellitus extermination supervisor insulin use: without custodial use Qualified Code(s): E11.9 - Type 2 diabetes mellitus without complications - Discharge Medications Home Medications: Fluticasone Propionate [Flovent Diskus] 1 puff IH BID 11/03/15 [History] Levalbuterol [Xopenex INH] 2 puff IH Q6H PRN 11/03/15 [History] Losartan [Cozaar] 25 mg PO DAILY 11/03/15 [History] Montelukast [Singulair] 10 mg PO DAILY 11/03/15 [History] Oxybutynin [Ditropan] 5 mg PO DAILY 11/03/15 [History] Roflumilast [Daliresp] 500 mcg PO DAILY 11/03/15 [History] Salmeterol Xinafoate [Serevent Diskus] 1 puff IH BID 11/03/15 [History] Simvastatin [Zocor] 20 mg PO HS 11/03/15 [History] Tiotropium [Spiriva] 18 mcg IH DAILY 11/03/15 [History] Metoprolol XL (24 HR) Succ [Toprol Xl] 25 mg PO DAILY #30 tab.er.24h 11/07/15 [ Rx] Albuterol Neb [Proventil Neb] 2.5 mg IH TID 04/22/16 [History] BuPROPion SR (12 HR) [Wellbutrin SR] 150 mg PO BID 04/22/16 [History] Cholecalciferol (Vitamin D3) [Vitamin D3] 1,000 unit PO DAILY 04/22/16 [History] DiphenhydraMINE [Benadryl] 25 mg PO Q6H PRN 04/22/16 [History] Fluticasone Propionate Nasal [Flonase] 1 spray NS DAILY PRN 04/22/16 [History] HYDROcodone/Acet 7.5/325 mg [[place] 7.5-325 mg] 1 tab PO Q6H PRN 04/22/16 [ History] Metformin HCl [Glucophage] 1,000 mg PO BID 04/22/16 [History] Nystatin POWDER [Nystop] 1 appl TP DAILY PRN 04/22/16 [History] Potassium Chloride [Klor-Con 10] 10 meq PO DAILY 04/22/16 [History] PredniSONE 10 mg PO DAILY 04/22/16 [History] Ranitidine HCl [Zantac] 150 mg PO BID 04/22/16 [History] Sertraline [Zoloft] 50 mg PO DAILY 04/22/16 [History] Glimepiride [Amaryl] 2 mg PO 0800 05/15/16 [History] Alprazolam [Xanax 0.5 MG Tablet] 0.5 mg PO Q6HR PRN #0 tablet 05/19/16 [Rx] Furosemide [Lasix] 20 mg PO DAILY #0 05/19/16 [Rx] Insulin LISPRO [HumaLOG] 0 units SQ HS vial 05/19/16 [Rx] Insulin LISPRO [HumaLOG] 0 units SQ TIDAC vial 05/19/16 [Rx] Lactobacillus [Culturelle] 1 each PO BID cap.sprink 05/19/16 [Rx] Piperacillin/Tazobactam [Zosyn] 3.375 gm IVPB Q8H vial 05/19/16 [Rx] PredniSONE 10 mg PO BIDWM tablet 05/19/16 [Rx] Vancomycin [Vancocin] 1,000 mg IVPB Q12H vial 05/19/16 [Rx] Allergies/Adverse Reactions: Allergies acetylcysteine [From Mucomyst] Allergy (Verified 11/03/15 09:20) Hives ciprofloxacin [From Cipro] Allergy (Verified 11/03/15 09:20) Hives clarithromycin [From Biaxin] Allergy (Verified 11/03/15 09:20) Hives Erythromycin Base Allergy (Verified 11/03/15 09:26) Hives fluticasone [From Advair Diskus] Allergy (Verified 11/03/15 09:26) Hives lorazepam [From Ativan] Allergy (Verified 11/03/15 09:20) Hives salmeterol [From Advair Diskus] Allergy (Verified 11/03/15 09:26) Hives Date of admission: 05/16/16 13:39 Primary care physician: Amanda Arnold Consults: 05/17/16 11:54 Consult to Occupational Therapy [CONS] Routine Comment: Evaluate, develop and implement POC Consult to Physical Therapy [CONS] Routine Comment: Evaluate, develop and implement POC - Patient Status Disposition: Transfer Hospital Swing Bed Condition: Fair Functional capacity at discharge: uses cane/walker Overall status at discharge: patient is progressing back to baseline - Discharge Instructions - Diet and Activity Activity: as per physical therapy, wear oxygen at all times Hospital course: Ms. Carmen is a 61 year old female who came to emergency room complaining of progressive dyspnea over the last few days. She had been hospitalized at [facility] April 23- for exacerbation of COPD. She reports becoming dyspneic and returning to [facility] on May 06. She was diagnosed with influenza A and was transferred to [facility]. She was treated with Tamiflu until discharge May 11. Her dyspnea did not resolve however with Tamiflu treatment. She went to her PCP Amnada Arnold SENIOR BUSINESS DEVELOPMENT MANAGER on May 15 and was directed to come to [facility] emergency room. She was evaluated with chest x-ray showing bilateral lower lobe airspace disease right greater than left. WBC was elevated at 26.5 with left shift. She was admitted to [facility] floor for ongoing care needs. Initial orders were written by the emergency room physician. I saw her on May 16 and performed a history and physical. She was started on IV Zosyn and vancomycin. Lactobacillus was given. WBC maira to 30.4 on May 17 but had improved to 25.6 on May 18. The WBC differential 05/18/2016 showed 80% segs and 4% bands. She clinically improved and felt stable for discharge to swing bed on May 19. She will continue to receive antibiotics and probiotics. She will continue to have physical therapy and occupational therapy interventions. - Time Spent with Patient Total time spent providing and/or coordinating discharge services: - Constitutional Vitals: Temp Pulse Resp BP Pulse Ox 98.9 F 95 15 139/80 97 05/19/16 07:01 05/19/16 07:01 05/19/16 08:50 05/19/16 07:01 05/19/16 08:50
[2016-05-19 12:25] VITALS: BP 150/83
[2016-05-19] MEDS ORDERED: Vancomycin 1,000 MG in D5% in Water 250 ML IVPB SCH (14:00)
[2016-05-19] MEDS ORDERED: Vancomycin 750 MG in D5% in Water 250 ML IVPB SCH (16:00)
== END 2016-05-19 13:59 | disposition other institution (70) | DRG 190 ==
LOC: INPPIK 11:26 → EMEROOPIK 11:26 → INPPIK 15:38
PROVIDERS: ADMIT Internal Medicine; ATTEND Internal Medicine

== ENCOUNTER 2016-05-19 14:01 | Inpatient (IN) ==
[~2016-05-19 14:01] MED LIST: Aminoglycoside Consult 1 EACH MC ONE
[2016-05-19] MEDS ORDERED: Nystatin POWDER 30 GM BOTTLE TP PRN (14:47)
[2016-05-19] MEDS ORDERED: Fluticasone Propionate Nasal 50 MCG/SPRAY BOTTLE NS PRN (14:47)
[2016-05-19] MEDS ORDERED: Dextrose Gel 15 GM PO PRN ×2 (15:09)
[2016-05-19] MEDS ORDERED: D5% in Water 1,000 ML IV PRN (15:09)
[2016-05-19] MEDS ORDERED: *HR* Dextrose 50 % in Water (Syg) 50 ML SYRINGE IVP PRN (15:09)
[2016-05-19] MEDS ORDERED: Vancomycin 1,000 MG VIAL IVPB SCH (16:00)
[2016-05-19] MEDS ORDERED: Levalbuterol Neb 1.25 MG/3 ML ONE (16:31)
[2016-05-19] MEDS: Levalbuterol Neb 1.25 MG/3 ML IH PRN ×2 (16:47→21:24)
[2016-05-19] MEDS: Vancomycin 750 MG in D5% in Water 250 ML IVPB SCH (17:13)
[2016-05-19] MEDS: PredniSONE 20 MG TABLET PO SCH (17:14)
[2016-05-19] MEDS: Insulin LISPRO 300 UNITS/3 ML VIAL SQ SCH ×2 (17:17→20:48)
[2016-05-19] MEDS ORDERED: Piperacillin/Tazobactam 3.375 GM VIAL IVPB SCH (18:00)
[2016-05-19] MEDS: Piperacillin/Tazobactam 3.375 GM in D5% in Water (Mini-Bag+) 100 ML IVPB SCH (18:41)
[2016-05-19] MEDS: Lactobacillus 1 EACH CAP.SPRINK PO SCH (20:47)
[2016-05-19] MEDS: *HR* Metformin 500 MG TABLET PO SCH (20:47)
[2016-05-19] MEDS: BuPROPion SR (12 HR) 150 MG TABLET PO SCH (20:47)
[2016-05-19] MEDS: *HR* HYDROcodone/Acet 7.5/325 mg TABLET PO PRN (20:48)
[2016-05-19] MEDS: Famotidine 20 MG TABLET PO SCH (20:48)
[2016-05-19] MEDS: Beclomethasone 80mcg MDI IH SCH (21:24)
[2016-05-20] MEDS: Piperacillin/Tazobactam 3.375 GM in D5% in Water (Mini-Bag+) 100 ML IVPB SCH ×2 (02:40→12:37)
[2016-05-20] MEDS: *HR* Enoxaparin 40 MG/0.4 ML SYRINGE SQ SCH (05:28)
[2016-05-20] MEDS: Vancomycin 750 MG in D5% in Water 250 ML IVPB SCH (05:29)
[2016-05-20 06:29] LABS: Prothrombin Time 10.4 Seconds (9.4-12.1)
[2016-05-20 06:31] LABS: Basophils % 0.3 %; Eosinophils % 0.1 %; Hemoglobin 11.7 g/dL (11.5-15.4); Immature Granulocytes % 1.4 % (0-4); Lymphocytes % 20.5 %; Mean Corpuscular HGB Conc 30.8 g/dL (31.6-35.5); Mean Corpuscular Hemoglobin 28.5 pg (28.0-33.3); Mean Corpuscular Volume 92.5 fL (83.0-100.0); Mean Platelet Volume 9.5 fL (9.4-12.4); Monocytes # 1.2 K/mcL (0.0-1.3); Monocytes % 8.2 %; Platelet Count 329 K/mcL (140-400); Red Blood Count 4.11 M/mcL (3.82-4.97); Red Cell Distribution Width 13.5 % (11.5-14.5); Segmented Neutrophils % 69.5 %
[2016-05-20 06:42] LABS: BUN/Creatinine Ratio 23 (6-26); Blood Urea Nitrogen 17 mg/dL (7-20); Calcium 9.8 mg/dL (8.6-10.8); Carbon Dioxide 36 mEq/L (19-29); Chloride 98 mEq/L (98-109); Glucose 133 mg/dL (70-99); Osmolality,Calculated 305 (280-300); Potassium 4.6 mEq/L (3.5-4.5); Sodium 146 mEq/L (136-145); eGFR For African Americans > 60 (> 60); eGFR For Non-African Americans > 60 (> 60)
[2016-05-20] MEDS: *HR* HYDROcodone/Acet 7.5/325 mg TABLET PO PRN ×2 (06:47→21:32)
[2016-05-20 06:54] LABS: Neutrophils # 10.2 K/mcL (1.6-8.9)
[2016-05-20] MEDS: Beclomethasone 80mcg MDI IH SCH ×2 (09:12→20:25)
[2016-05-20] MEDS: Levalbuterol Neb 1.25 MG/3 ML IH PRN ×3 (09:12→20:23)
[2016-05-20] MEDS: *HR* Glimepiride 2 MG TABLET PO SCH (09:49)
[2016-05-20] MEDS: PredniSONE 20 MG TABLET PO SCH ×2 (09:49→17:57)
[2016-05-20] MEDS: Cholecalciferol (D-3) 1,000 UNIT TABLET PO SCH (09:50)
[2016-05-20] MEDS: Lactobacillus 1 EACH CAP.SPRINK PO SCH ×2 (09:50→21:33)
[2016-05-20] MEDS: Famotidine 20 MG TABLET PO SCH ×2 (09:50→21:33)
[2016-05-20] MEDS: *HR* Metformin 500 MG TABLET PO SCH ×2 (09:50→21:32)
[2016-05-20] MEDS: BuPROPion SR (12 HR) 150 MG TABLET PO SCH ×2 (09:50→21:33)
[2016-05-20] MEDS: Metoprolol XL (24 HR) Succ 25 MG TAB.ER.24H PO SCH (09:50)
[2016-05-20] MEDS: (Roflumilast [Daliresp] 500 MCG) PO SCH (09:51)
[2016-05-20] MEDS: Insulin LISPRO 300 UNITS/3 ML VIAL SQ SCH ×4 (09:51→21:34)
--- NOTE | 2016-05-20 12:43 | Internal Med Progress Note ---
Date of Encounter: 05/20/16 Time of Encounter: 12:30 - Assessment and plan (1) Pneumonia Current Visit: No Status: Acute Assessment and plan: May 20. Her IV has become dislodged repeatedly. We will change her to oral antibiotics. Qualifiers: Pneumonia type: due to unspecified organism Laterality: bilateral Lung location: lower lobe of lung Qualified Code(s): J18.9 - Pneumonia, unspecified organism (2) Acute exacerbation of chronic obstructive airways disease Current Visit: No Status: Acute Assessment and plan: May 20. Continue present regimen and change of antibiotics to oral. (3) DM type 2 (diabetes mellitus, type 2) Current Visit: No Status: Chronic Assessment and plan: May 20. Hemoglobin A1c was 7.6% on 04/24/2016. Continue Amaryl and Glucophage and Accu-Cheks with SSI Qualifiers: Diabetes mellitus complication status: without complication Diabetes mellitus half-way insulin use: without buttermilk drier operator use Qualified Code(s): E11.9 - Type 2 diabetes mellitus without complications - Subjective Interval history: May 20. She was hospitalized in acute care from May 15- for bilateral basilar pneumonia She was treated with IV Zosyn and vancomycin. Her WBC remained elevated. She was discharged to swing bed for ongoing antibiotics and therapy. She feels slightly better today and has no new complaints. - Constitutional Vitals: Temp Pulse Resp BP Pulse Ox 98.1 F 98 18 150/83 96 05/20/16 07:06 05/20/16 08:48 05/20/16 09:12 05/20/16 07:06 05/20/16 09:12 Exam: She is sitting on the side of the bed resting comfortably. Her lungs are clear. Extremities show no edema. I reviewed her medications and lab results. Internal Medicine: Result - Labs CBC & Chem 7: 05/20/16 05:15 05/20/16 05:15 Labs: Short CBC 05/20/16 Range/Units 05:15 WBC 14.6 H (4.3-11.1) K/mcL Hgb 11.7 (11.5-15.4) g/dL Hct 38.0 (35.3-44.9) % Plt Count 329 (140-400) K/mcL Neutrophils # 10.2 H (1.6-8.9) K/mcL BMP 05/20/16 05:15 Sodium 146 H Potassium 4.6 H Chloride 98 Carbon Dioxide 36 H BUN 17 Creatinine 0.75 Glucose 133 H Calcium 9.8 - ABG Interpretation ABG results: PT/INR, D-dimer PT 10.4 Seconds (9.4-12.1) 05/20/16 05:15
[2016-05-20] MEDS: Ondansetron ODT 4 MG TAB.RAPDIS SL PRN (14:30)
[2016-05-20] MEDS: Doxycycline 100 MG CAPSULE PO SCH (21:33)
[2016-05-21] MEDS: *HR* Enoxaparin 40 MG/0.4 ML SYRINGE SQ SCH (06:55)
[2016-05-21] MEDS: *HR* HYDROcodone/Acet 7.5/325 mg TABLET PO PRN ×2 (06:55→20:44)
[2016-05-21] MEDS: Insulin LISPRO 300 UNITS/3 ML VIAL SQ SCH ×4 (08:47→20:46)
[2016-05-21] MEDS: Levalbuterol Neb 1.25 MG/3 ML IH PRN ×3 (10:04→20:57)
[2016-05-21] MEDS: Beclomethasone 80mcg MDI IH SCH ×2 (10:09→20:58)
[2016-05-21] MEDS: Cholecalciferol (D-3) 1,000 UNIT TABLET PO SCH (10:25)
[2016-05-21] MEDS: Metoprolol XL (24 HR) Succ 25 MG TAB.ER.24H PO SCH (10:25)
[2016-05-21] MEDS: PredniSONE 20 MG TABLET PO SCH ×2 (10:25→17:16)
[2016-05-21] MEDS: Lactobacillus 1 EACH CAP.SPRINK PO SCH ×2 (10:27→20:45)
[2016-05-21] MEDS: Famotidine 20 MG TABLET PO SCH ×2 (10:32→20:44)
[2016-05-21] MEDS: *HR* Metformin 500 MG TABLET PO SCH ×2 (10:32→17:18)
[2016-05-21] MEDS: Doxycycline 100 MG CAPSULE PO SCH ×2 (10:33→20:45)
[2016-05-21] MEDS: BuPROPion SR (12 HR) 150 MG TABLET PO SCH ×2 (10:34→20:45)
[2016-05-21] MEDS: (Roflumilast [Daliresp] 500 MCG) PO SCH (10:35)
[2016-05-21] MEDS: *HR* Glimepiride 2 MG TABLET PO SCH (10:35)
[2016-05-21] MEDS: Ondansetron ODT 4 MG TAB.RAPDIS SL PRN (17:15)
[2016-05-22] MEDS: *HR* Enoxaparin 40 MG/0.4 ML SYRINGE SQ SCH (06:13)
[2016-05-22] MEDS: *HR* HYDROcodone/Acet 7.5/325 mg TABLET PO PRN ×2 (06:14→20:59)
[2016-05-22] MEDS: *HR* Glimepiride 2 MG TABLET PO SCH (09:01)
[2016-05-22] MEDS: Insulin LISPRO 300 UNITS/3 ML VIAL SQ SCH ×4 (09:01→20:35)
[2016-05-22] MEDS: PredniSONE 20 MG TABLET PO SCH (09:02)
[2016-05-22] MEDS: *HR* Metformin 500 MG TABLET PO SCH ×2 (09:02→16:48)
[2016-05-22] MEDS: Lactobacillus 1 EACH CAP.SPRINK PO SCH ×2 (09:03→20:57)
[2016-05-22] MEDS: Doxycycline 100 MG CAPSULE PO SCH ×2 (09:03→20:56)
[2016-05-22] MEDS: Cholecalciferol (D-3) 1,000 UNIT TABLET PO SCH (09:04)
[2016-05-22] MEDS: Famotidine 20 MG TABLET PO SCH ×2 (09:04→20:57)
[2016-05-22] MEDS: Metoprolol XL (24 HR) Succ 25 MG TAB.ER.24H PO SCH (09:04)
[2016-05-22] MEDS: BuPROPion SR (12 HR) 150 MG TABLET PO SCH ×2 (09:05→20:57)
[2016-05-22] MEDS: (Roflumilast [Daliresp] 500 MCG) PO SCH (09:06)
[2016-05-22] MEDS: Levalbuterol Neb 1.25 MG/3 ML IH PRN ×2 (10:57→19:41)
[2016-05-22] MEDS: Beclomethasone 80mcg MDI IH SCH ×2 (10:57→19:41)
[2016-05-23] MEDS: *HR* Enoxaparin 40 MG/0.4 ML SYRINGE SQ SCH (05:54)
[2016-05-23] MEDS: *HR* HYDROcodone/Acet 7.5/325 mg TABLET PO PRN ×2 (06:19→20:37)
[2016-05-23 06:21] LABS: Basophils # 0.1 K/mcL (0.0-0.2); Basophils % 0.4 %; Eosinophils % 0.9 %; Hematocrit 38.6 % (35.3-44.9); Hemoglobin 12.1 g/dL (11.5-15.4); Immature Granulocytes % 2.2 % (0-4); Lymphocytes # 6.3 K/mcL (0.6-4.6); Mean Corpuscular HGB Conc 31.3 g/dL (31.6-35.5); Mean Corpuscular Hemoglobin 28.9 pg (28.0-33.3); Mean Corpuscular Volume 92.1 fL (83.0-100.0); Mean Platelet Volume 8.9 fL (9.4-12.4); Monocytes % 6.2 %; Platelet Count 331 K/mcL (140-400); Red Blood Count 4.19 M/mcL (3.82-4.97); Red Cell Distribution Width 13.7 % (11.5-14.5); Segmented Neutrophils % 51.3 %
[2016-05-23 06:38] LABS: BUN/Creatinine Ratio 28 (6-26); Blood Urea Nitrogen 20 mg/dL (7-20); Calcium 9.7 mg/dL (8.6-10.8); Carbon Dioxide 34 mEq/L (19-29); Chloride 99 mEq/L (98-109); Glucose 93 mg/dL (70-99); Osmolality,Calculated 300 (280-300); Potassium 4.6 mEq/L (3.5-4.5); Sodium 144 mEq/L (136-145); eGFR For African Americans > 60 (> 60); eGFR For Non-African Americans > 60 (> 60)
[2016-05-23 06:47] LABS: Eosinophils # 0.1 K/mcL (0.0-0.6); Neutrophils # 8.3 K/mcL (1.6-8.9)
[2016-05-23] MEDS: Levalbuterol Neb 1.25 MG/3 ML IH PRN ×4 (07:24→22:33)
[2016-05-23] MEDS: Beclomethasone 80mcg MDI IH SCH ×2 (07:28→22:33)
[2016-05-23] MEDS: PredniSONE 20 MG TABLET PO SCH (08:11)
[2016-05-23] MEDS: Famotidine 20 MG TABLET PO SCH ×2 (08:12→20:36)
[2016-05-23] MEDS: Lactobacillus 1 EACH CAP.SPRINK PO SCH ×2 (08:12→20:36)
[2016-05-23] MEDS: Metoprolol XL (24 HR) Succ 25 MG TAB.ER.24H PO SCH (08:14)
[2016-05-23] MEDS: Doxycycline 100 MG CAPSULE PO SCH ×2 (08:15→20:36)
[2016-05-23] MEDS: *HR* Metformin 500 MG TABLET PO SCH ×2 (08:15→17:47)
[2016-05-23] MEDS: Cholecalciferol (D-3) 1,000 UNIT TABLET PO SCH (08:15)
[2016-05-23] MEDS: BuPROPion SR (12 HR) 150 MG TABLET PO SCH ×2 (08:15→20:36)
[2016-05-23] MEDS: Insulin LISPRO 300 UNITS/3 ML VIAL SQ SCH ×4 (08:16→20:34)
[2016-05-23] MEDS: (Roflumilast [Daliresp] 500 MCG) PO SCH (08:24)
[2016-05-24] MEDS: *HR* HYDROcodone/Acet 7.5/325 mg TABLET PO PRN (06:16)
[2016-05-24] MEDS: *HR* Enoxaparin 40 MG/0.4 ML SYRINGE SQ SCH (06:17)
[2016-05-24] MEDS ORDERED: Fluconazole 100 MG TABLET PO ONE (06:30)
[2016-05-24 08:10] VITALS: BP 121/71
[2016-05-24] MEDS: Levalbuterol Neb 1.25 MG/3 ML IH PRN (08:52)
[2016-05-24] MEDS: Beclomethasone 80mcg MDI IH SCH (08:53)
--- NOTE | 2016-05-24 09:35 | Discharge Summary ---
Date of Encounter: 05/24/16 Time of Encounter: 09:20 - Discharge Diagnosis (1) Pneumonia Priority: Primary Status: Acute Qualifiers: Pneumonia type: due to unspecified organism Laterality: bilateral Lung location: lower lobe of lung Qualified Code(s): J18.9 - Pneumonia, unspecified organism (2) Acute exacerbation of chronic obstructive airways disease Priority: Secondary Status: Acute (3) DM type 2 (diabetes mellitus, type 2) Priority: Secondary Status: Chronic Qualifiers: Diabetes mellitus complication status: without complication Diabetes mellitus oysterman insulin use: without group home use Qualified Code(s): E11.9 - Type 2 diabetes mellitus without complications - Discharge Medications Prescriptions: Alprazolam [Xanax 0.5 MG Tablet] 0.5 mg PO Q6HR PRN #20 tablet PRN Reason: Anxiety Fluconazole [Diflucan] 150 mg PO DAILY #5 tab Home Medications: Fluticasone Propionate [Flovent Diskus] 1 puff IH BID 11/03/15 [History] Levalbuterol [Xopenex INH] 2 puff IH Q6H PRN 11/03/15 [History] Losartan [Cozaar] 25 mg PO DAILY 11/03/15 [History] Montelukast [Singulair] 10 mg PO DAILY 11/03/15 [History] Oxybutynin [Ditropan] 5 mg PO DAILY 11/03/15 [History] Roflumilast [Daliresp] 500 mcg PO DAILY 11/03/15 [History] Salmeterol Xinafoate [Serevent Diskus] 1 puff IH BID 11/03/15 [History] Simvastatin [Zocor] 20 mg PO HS 11/03/15 [History] Tiotropium [Spiriva] 18 mcg IH DAILY 11/03/15 [History] Metoprolol XL (24 HR) Succ [Toprol Xl] 25 mg PO DAILY #30 tab.er.24h 11/07/15 [ Rx] Albuterol Neb [Proventil Neb] 2.5 mg IH TID 04/22/16 [History] BuPROPion SR (12 HR) [Wellbutrin SR] 150 mg PO BID 04/22/16 [History] Cholecalciferol (Vitamin D3) [Vitamin D3] 1,000 unit PO DAILY 04/22/16 [History] DiphenhydraMINE [Benadryl] 25 mg PO Q6H PRN 04/22/16 [History] Fluticasone Propionate Nasal [Flonase] 1 spray NS DAILY PRN 04/22/16 [History] HYDROcodone/Acet 7.5/325 mg [[place] 7.5-325 mg] 1 tab PO Q6H PRN 04/22/16 [ History] Metformin HCl [Glucophage] 1,000 mg PO BID 04/22/16 [History] Nystatin POWDER [Nystop] 1 appl TP DAILY PRN 04/22/16 [History] Potassium Chloride [Klor-Con 10] 10 meq PO DAILY 04/22/16 [History] PredniSONE 10 mg PO DAILY 04/22/16 [History] Ranitidine HCl [Zantac] 150 mg PO BID 04/22/16 [History] Sertraline [Zoloft] 50 mg PO DAILY 04/22/16 [History] Glimepiride [Amaryl] 2 mg PO 0800 05/15/16 [History] Furosemide [Lasix] 20 mg PO DAILY #0 05/19/16 [Rx] Insulin LISPRO [HumaLOG] 0 units SQ HS vial 05/19/16 [Rx] Insulin LISPRO [HumaLOG] 0 units SQ TIDAC vial 05/19/16 [Rx] Alprazolam [Xanax 0.5 MG Tablet] 0.5 mg PO Q6HR PRN #20 tablet 05/24/16 [Rx] Fluconazole [Diflucan] 150 mg PO DAILY #5 tab 05/24/16 [Rx] Allergies/Adverse Reactions: Allergies acetylcysteine [From Mucomyst] Allergy (Verified 11/03/15 09:20) Hives ciprofloxacin [From Cipro] Allergy (Verified 11/03/15 09:20) Hives clarithromycin [From Biaxin] Allergy (Verified 11/03/15 09:20) Hives Erythromycin Base Allergy (Verified 11/03/15 09:26) Hives fluticasone [From Advair Diskus] Allergy (Verified 11/03/15 09:26) Hives lorazepam [From Ativan] Allergy (Verified 11/03/15 09:20) Hives salmeterol [From Advair Diskus] Allergy (Verified 11/03/15 09:26) Hives Date of admission: 05/19/16 14:02 Primary care physician: Amanda Arnold CNP Consults: 05/19/16 14:43 Consult to Occupational Therapy [CONS] Routine Comment: eval, develop, and implement POC Consult to Physical Therapy [CONS] Routine Comment: eval, develop, and implement POC Consult to [place] [CONS] Routine Reason for SW Consult: D/C planning 05/19/16 19:58 Consult to Nutrition [CONS] Routine Comment: Consulting Provider: NUTRITION Reason for Dietary Consult: MST Score - Patient Status Disposition: Home, Self-Care Overall status at discharge: patient is progressing back to baseline - Discharge Instructions Follow Up With: Amanda Arnold [Advanced Practice Nurse] - 1 week - Diet and Activity Activity: resume usual activities as tolerated, wear oxygen at all times Diet: advance to your usual diet Hospital course: Ms. Carmen is a 61 year old female who was hospitalized in acute care from May 15- for bilateral basilar pneumonia She was treated with IV Zosyn and vancomycin. Her WBC remained elevated. She was discharged to swing bed for ongoing antibiotics and therapy. She continued to receive IV antibiotics initially in swing bed. On May 20 her IV became dislodged and she was changed to oral antibiotics. She remained afebrile during her swing bed stay. WBC was 16.1 K on 05/23/2016. Her segs were 51.3% and lymphocytes 39%. I felt WBC would gradually improve as she continued to recover. Her prednisone dose was reduced back to 10 mg daily. There were no new problems and on May 24 I felt she was stable for discharge home. She will follow with her PCP Amanda Arnold CNP within 1 week. Antibiotics will not be continued. She will receive 20 pills of Xanax for prn use. She was also given 5 days Rx of Diflucan for complaints of oral thrush symptoms. - Time Spent with Patient Total time spent providing and/or coordinating discharge services: - Constitutional Vitals: Temp Pulse Resp BP Pulse Ox 98.2 F 102 16 121/71 98 05/24/16 07:12 05/24/16 07:12 05/24/16 09:07 05/24/16 07:12 05/24/16 09:07
[2016-05-24] MEDS: *HR* Metformin 500 MG TABLET PO SCH (10:10)
[2016-05-24] MEDS: Lactobacillus 1 EACH CAP.SPRINK PO SCH (10:10)
[2016-05-24] MEDS: Famotidine 20 MG TABLET PO SCH (10:11)
[2016-05-24] MEDS: PredniSONE 20 MG TABLET PO SCH (10:12)
[2016-05-24] MEDS: Doxycycline 100 MG CAPSULE PO SCH (10:12)
[2016-05-24] MEDS: Cholecalciferol (D-3) 1,000 UNIT TABLET PO SCH (10:14)
[2016-05-24] MEDS: BuPROPion SR (12 HR) 150 MG TABLET PO SCH (10:14)
[2016-05-24] MEDS: Metoprolol XL (24 HR) Succ 25 MG TAB.ER.24H PO SCH (10:14)
[2016-05-24] MEDS: (Roflumilast [Daliresp] 500 MCG) PO SCH (10:20)
[2016-05-24] MEDS: Insulin LISPRO 300 UNITS/3 ML VIAL SQ SCH (10:20)
== END 2016-05-24 10:27 | disposition home or self-care (01) | DRG 945 ==
LOC: INPPIK 14:02
PROVIDERS: ADMIT Internal Medicine; ATTEND Internal Medicine

== ENCOUNTER 2017-01-16 09:43 | Observation (INO) ==
--- NOTE | 2017-01-16 09:48 | Emergency Department Note ---
Disposition Clinical Impression: Acute exacerbation of chronic obstructive airways disease Disposition: Admitted As Inpatient Condition: Fair Referrals: Amanda Arnold [Advanced Practice Nurse] - (Recheck in 2-3 days if any problems.) Forms: ED Satisfaction Letter URI/Sore Throat HPI - General Chief Complaint: ED Upper Respiratory Infection Stated Complaint: cough Time Seen by Provider: 01/16/17 09:50 Source: patient, family Mode of arrival: private vehicle Limitations: no limitations Nursing Notes Reviewed: Yes Vital Signs Reviewed: Yes - History of Present Illness HPI Narrative: Patient reports she has had increased shortness of breath ever since she had a flu shot on Friday. She states she started with some yellowish phlegm that has turned brown and then green. She states her chest is sore with coughing or deep breath. She has had nausea with vomiting and also occasionally coughing to the point of vomiting. She has had a feeling of fevers or chills but has not taken her temperature. She indicates that she "hurts all over". She denies any abdominal pain or diarrhea. She denies any lower extremity swelling , immobilization or injury. She denies any ill exposures or change of medications. She has been doing her home aerosols without improvement with the last administration at 6 AM. She has come in by private auto on her usual 3 L of oxygen by nasal cannula. She relates the last time she felt this way she had pneumonia. She has known emphysema and COPD. Pt Subjective Complaint: cough Onset (ago): day(s) Duration: gradually worsening Severity: moderate Improves with: vaporizer Worsens with: exertion, night If sputum, description: green, other (Brown) Context: multiple patients with similar complaints Associated symptoms: Reports: fever, chills, myalgias, cough, chest pain (Sore with cough or deep breath), shortness of breath, nausea, vomiting. Denies: voice changes, diaphoresis, headache, rhinorrhea, nasal congestion, sore throat , stiff neck, abdominal pain, diarrhea, dysuria, rash, epistaxis, ear pain Treatments prior to arrival: other (Aerosol at 6 AM) - Related Data Home Medications Medication Instructions Recorded Confirmed Levalbuterol [Xopenex INH] 2 puff IH Q6H PRN 11/03/15 09/26/16 Losartan [Cozaar] 25 mg PO DAILY 11/03/15 09/26/16 Montelukast [Singulair] 10 mg PO DAILY 11/03/15 09/26/16 Oxybutynin [Ditropan] 5 mg PO QPM 11/03/15 09/26/16 Roflumilast [Daliresp] 500 mcg PO DAILY 11/03/15 09/26/16 Salmeterol Xinafoate [Serevent 1 puff IH BID 11/03/15 09/26/16 Diskus] Simvastatin [Zocor] 20 mg PO HS 11/03/15 09/26/16 Tiotropium [Spiriva] 18 mcg IH DAILY 11/03/15 09/26/16 BuPROPion SR (12 HR) [Wellbutrin 150 mg PO BID 04/22/16 09/26/16 SR] DiphenhydraMINE [Benadryl] 25 mg PO DAILY 04/22/16 09/26/16 Fluticasone Propionate Nasal 1 spray NS DAILY PRN 04/22/16 09/26/16 [Flonase] HYDROcodone/Acet 7.5/325 mg [[place] 1 tab PO Q6H PRN 04/22/16 09/26/16 7.5-325 mg] Metformin HCl [Glucophage] 1,000 mg PO BID 04/22/16 09/26/16 Nystatin POWDER [Nystop] 1 appl TP DAILY PRN 04/22/16 09/26/16 Potassium Chloride [Klor-Con 10] 10 meq PO BID 04/22/16 09/26/16 Ranitidine HCl [Zantac] 150 mg PO BID 04/22/16 09/26/16 Sertraline [Zoloft] 50 mg PO DAILY 04/22/16 09/26/16 predniSONE [PredniSONE] 10 mg PO DAILY 04/22/16 09/26/16 Azithromycin [Zithromax] 250 mg PO DAILY 09/26/16 09/26/16 Cholecalciferol (D-3) [Vitamin D] 5,000 unit PO DAILY 09/26/16 09/26/16 Levalbuterol HCl [Xopenex] 1.25 mg IH QID PRN 09/26/16 09/26/16 Oxygen 3 l .ROUTE AD 09/26/16 09/26/16 clonazePAM [Klonopin] 0.5 mg PO BID 09/26/16 09/26/16 glipiZIDE [Glucotrol] 5 mg PO DAILY 09/26/16 09/26/16 Previous Rx's Medication Instructions Recorded Metoprolol XL (24 HR) Succ [Toprol 25 mg PO DAILY #30 tab.er.24h 11/07/15 Xl] Furosemide [Lasix] 20 mg PO DAILY #0 05/19/16 OxyCODONE/APAP 10/325 [Percocet 1 each PO Q6HR PRN #36 tab 09/26/16 10/325 MG] Allergies Allergy/AdvReac Type Severity Reaction Status Date / Time acetylcysteine AdvReac Hives Verified 01/16/17 09:45 [From Mucomyst] ciprofloxacin [From Cipro] AdvReac Hives Verified 01/16/17 09:45 clarithromycin [From Biaxin] AdvReac see comment Verified 01/16/17 09:45 Erythromycin Base AdvReac Hives Verified 01/16/17 09:45 fluticasone AdvReac Hives Verified 01/16/17 09:45 [From Advair Diskus] lorazepam [From Ativan] AdvReac Hives Verified 01/16/17 09:45 salmeterol AdvReac Hives Verified 01/16/17 09:45 [From Advair Diskus] All systems ED: reviewed and negative except as stated. URI PMH - Past Medical History Medical history: Reports: CHF, COPD, diabetes, hyperlipidemia, hypertension Surgical history: Reports: cataract Psychiatric history: Reports: anxiety, bipolar ART DEALER history: Reports: bilateral tubal ligation - Social History Smoking Status: Former smoker Alcohol use: Reports: none Drug use: Reports: none Physical Exam - General Limitations: no limitations General appearance: alert, in no apparent distress - Head Head exam: atraumatic, normocephalic, normal inspection - Eye Eye exam: Present: normal appearance, PERRL, EOMI. Absent: scleral icterus, conjunctival injection - ENT ENT exam: normal exam, normal oropharynx, mucous membranes moist - Neck Neck exam: Present: normal inspection, full ROM, trachea midline - Chest Chest inspection: Present: normal inspection, symmetric chest wall rise - Respiratory Respiratory exam: Present: respiratory distress, prolonged expiratory phase. Absent: wheezes, stridor, accessory muscle use - Cardiovascular Cardiovascular exam: Present: regular rate, normal rhythm, normal heart sounds - Abdominal Exam Abdominal exam: Present: soft, Non-Tender, normal bowel sounds. Absent: tenderness, distention, guarding, rebound, rigidity - Extremities Exam Extremities exam: Present: normal inspection, full ROM, normal capillary refill. Absent: tenderness, pedal edema, calf tenderness - Expanded Lower Extremity Exam Neurovascular/Tendon exam: Present: normal capillary refill. Absent: motor deficit, sensory deficit, tendon deficit Gait: observed and normal - Neurological Exam Neurological exam: Present: alert, oriented X3 - Psychiatric Psychiatric exam: Present: normal affect, normal mood - Skin Skin exam: Present: warm, dry, intact, normal color. Absent: cyanosis, diaphoresis, pallor Course Course Narrative: 1110: Care has been discussed with Dr. Nair was given verbal orders for this patient's observation. We will be starting Rocephin and doxycycline because of her allergy profile. Vital Signs Temperature 97.7 F 01/16/17 09:46 Pulse Rate 131 01/16/17 09:46 Respiratory Rate 20 01/16/17 09:46 Blood Pressure 148/81 01/16/17 09:46 O2 Sat by Pulse Oximetry 94 01/16/17 09:46 Temperature 97.7 F 01/16/17 09:46 Pulse Rate 131 01/16/17 09:46 Respiratory Rate 18 01/16/17 10:31 Blood Pressure 148/81 01/16/17 09:46 O2 Sat by Pulse Oximetry 96 01/16/17 10:31 Oxygen Delivery Oxygen Delivery Nasal Cannula Upper Respiratory Infection - Differential Diagnosis Differential Diagnosis: Likely: upper respiratory infection, other viral infection, bronchitis (exacerbation of COPD), pneumonia - Medical Records Medical records reviewed: Yes I reviewed the patient's medical records. - Lab Data Lab results reviewed: Yes I reviewed the patient's lab results. Result diagrams: 01/16/17 10:24 01/16/17 10:24 Lab Results 01/16/17 01/16/17 01/16/17 Range/Units 10:24 10:24 10:24 WBC 14.6 H (4.3-11.1) K/mcL RBC 4.09 (3.82-4.97) M/mcL Hgb 11.6 (11.5-15.4) g/dL Hct 34.9 L (35.3-44.9) % MCV 85.3 (83.0-100.0) fL MCH 28.4 (28.0-33.3) pg MCHC 33.2 (31.6-35.5) g/dL RDW 14.2 (11.5-14.5) % Plt Count 436 H (140-400) K/mcL MPV 9.1 L (9.4-12.4) fL Immature Gran % 0.9 (0-4) % Seg Neutrophils % 82.8 % Lymphocytes % 8.7 % Monocytes % 6.7 % Eosinophils % 0.6 % Basophils % 0.3 % Neutrophils # 12.1 H (1.6-8.9) K/mcL Lymphocytes # 1.3 (0.6-4.6) K/mcL Monocytes # 1.0 (0.0-1.3) K/mcL Eosinophils # 0.1 (0.0-0.6) K/mcL Basophils # 0.0 (0.0-0.2) K/mcL PT 12.5 H (9.4-12.1) Seconds INR 1.2 APTT 30.5 (26.0-36.0) Seconds Sodium 145 (136-145) mEq/L Potassium 3.5 (3.5-4.5) mEq/L Chloride 103 (98-109) mEq/L Carbon Dioxide 25 (19-29) mEq/L BUN 10 (7-20) mg/dL Creatinine 0.77 (0.57-1.11) mg/dL Est GFR ( Amer) > 60 (> 60) Est GFR (Non-Af Amer) > 60 (> 60) BUN/Creatinine Ratio 13 (6-26) Glucose 175 H (70-99) mg/dL Calculated Osmolality 303 H (280-300) Lactic Acid (0.5-2.2) mmol/L Calcium 10.8 (8.6-10.8) mg/dL Troponin I (0-0.03) ng/mL B-Natriuretic Peptide (0-100) pg/mL 01/16/17 01/16/17 01/16/17 Range/Units 10:24 10:24 10:24 WBC (4.3-11.1) K/mcL RBC (3.82-4.97) M/mcL Hgb (11.5-15.4) g/dL Hct (35.3-44.9) % MCV (83.0-100.0) fL MCH (28.0-33.3) pg MCHC (31.6-35.5) g/dL RDW (11.5-14.5) % Plt Count (140-400) K/mcL MPV (9.4-12.4) fL Immature Gran % (0-4) % Seg Neutrophils % % Lymphocytes % % Monocytes % % Eosinophils % % Basophils % % Neutrophils # (1.6-8.9) K/mcL Lymphocytes # (0.6-4.6) K/mcL Monocytes # (0.0-1.3) K/mcL Eosinophils # (0.0-0.6) K/mcL Basophils # (0.0-0.2) K/mcL PT (9.4-12.1) Seconds INR APTT (26.0-36.0) Seconds Sodium (136-145) mEq/L Potassium (3.5-4.5) mEq/L Chloride (98-109) mEq/L Carbon Dioxide (19-29) mEq/L BUN (7-20) mg/dL Creatinine (0.57-1.11) mg/dL Est GFR ( Amer) (> 60) Est GFR (Non-Af Amer) (> 60) BUN/Creatinine Ratio (6-26) Glucose (70-99) mg/dL Calculated Osmolality (280-300) Lactic Acid 0.9 (0.5-2.2) mmol/L Calcium (8.6-10.8) mg/dL Troponin I 0.00 (0-0.03) ng/mL B-Natriuretic Peptide 24 (0-100) pg/mL - Radiology Data Radiology results reviewed: Yes I reviewed the patient's radiology results. Single view chest x-ray is performed. This does not demonstrate evidence for infiltrate, effusion, pneumothorax, foreign body or heart failure. Patient is hyperexpanded with scarring consistent with emphysema and COPD. The cardiac silhouette is normal. I do not see abnormality to the osseous structures of the chest. This is on my interpretation. Impressions Chest X-Ray 01/16/17 09:55 IMPRESSION: Small right basilar opacity may represent atelectasis, pneumonia, and/or small pleural effusion. Recommend radiographic follow-up to complete resolution. D/ / Asher Garcia MD / Asher Garcia MD Interpreting Provider: Asher Garcia MD - EKG Data EKG attestation: Yes I reviewed and interpreted this EKG. EKG shows normal: sinus rhythm, axis, intervals, QRS complexes, ST-T waves Rate: tachycardia (118) Interpretation: no acute changes, nonspecific ST-T wave changes Critical Care Time Critical Care Time: Yes Total Critical Care Time: 45 Attestation: As this patient did present with signs and symptoms of potential life- threatening illness requiring my urgent intervention, total critical care time in this patient's care has been 45 minutes, not withstanding separately reportable procedures.
[2017-01-16] MEDS ORDERED: Ipratropium/Albuterol Neb 3 ML IH ONE (09:55)
[2017-01-16] MEDS ORDERED: methylPREDNISolone 125 MG/2 ML VIAL IVP ONE (09:55)
[2017-01-16] MEDS ORDERED: 0.9 % Sodium Chloride 500 ML IVC ONE (09:57)
[2017-01-16] MEDS ORDERED: 0.9 % Sodium Chloride 1,000 ML IVC SCH ×2 (10:00→12:26)
[2017-01-16] MEDS ORDERED: Levalbuterol Neb 1.25 MG/3 ML IH ONE (10:12)
[2017-01-16 10:33] LABS: Basophils % 0.3 %; Eosinophils # 0.1 K/mcL (0.0-0.6); Eosinophils % 0.6 %; Hematocrit 34.9 % (35.3-44.9); Hemoglobin 11.6 g/dL (11.5-15.4); Immature Granulocytes % 0.9 % (0-4); Lymphocytes # 1.3 K/mcL (0.6-4.6); Lymphocytes % 8.7 %; Mean Corpuscular HGB Conc 33.2 g/dL (31.6-35.5); Mean Corpuscular Hemoglobin 28.4 pg (28.0-33.3); Mean Corpuscular Volume 85.3 fL (83.0-100.0); Mean Platelet Volume 9.1 fL (9.4-12.4); Monocytes % 6.7 %; Neutrophils # 12.1 K/mcL (1.6-8.9); Platelet Count 436 K/mcL (140-400); Red Blood Count 4.09 M/mcL (3.82-4.97); Red Cell Distribution Width 14.2 % (11.5-14.5); Segmented Neutrophils % 82.8 %
[2017-01-16 10:40] LABS: INR 1.2; Prothrombin Time 12.5 Seconds (9.4-12.1)
[2017-01-16 10:42] LABS: Activated Partial Thrombo Time 30.5 Seconds (26.0-36.0)
[2017-01-16 10:50] LABS: BUN/Creatinine Ratio 13 (6-26); Blood Urea Nitrogen 10 mg/dL (7-20); Calcium 10.8 mg/dL (8.6-10.8); Carbon Dioxide 25 mEq/L (19-29); Chloride 103 mEq/L (98-109); Glucose 175 mg/dL (70-99); Osmolality,Calculated 303 (280-300); Potassium 3.5 mEq/L (3.5-4.5); Sodium 145 mEq/L (136-145); eGFR For African Americans > 60 (> 60); eGFR For Non-African Americans > 60 (> 60)
[2017-01-16] MEDS ORDERED: Doxycycline 100 MG in 0.9 % Sodium Chloride Mini Bag 100 ML IVPB SCH (11:08)
[2017-01-16] MEDS ORDERED: Ondansetron ODT 4 MG TAB.RAPDIS SL ONE ×2 (11:43→12:26)
[2017-01-16] MEDS ORDERED: D5% in Water 1,000 ML IVC PRN (12:26)
[2017-01-16] MEDS ORDERED: Ondansetron 4 MG/2 ML VIAL IVP PRN ×2 (12:26→16:29)
[2017-01-16] MEDS ORDERED: Acetaminophen 325 MG TABLET PO PRN (12:26)
[2017-01-16] MEDS ORDERED: MOM Conc 10 ML UD.LIQ PO PRN (12:26)
[2017-01-16] MEDS ORDERED: *HR* Dextrose 50 % in Water (Syg) 50 ML SYRINGE IVP PRN (12:26)
[2017-01-16] MEDS ORDERED: Naloxone 0.4 MG/ML INJ IVP PRN (12:26)
[2017-01-16] MEDS ORDERED: Dextrose Gel 15 GM PO PRN ×2 (12:26)
[2017-01-16] MEDS: Insulin LISPRO 300 UNITS/3 ML VIAL SQ SCH ×3 (13:18→19:53)
[2017-01-16] MEDS ORDERED: Furosemide 20 MG TABLET PO PRN (14:09)
[2017-01-16] MEDS ORDERED: Fluticasone Propionate Nasal 50 MCG/SPRAY BOTTLE NS PRN (14:09)
[2017-01-16] MEDS: Doxycycline 100 MG in 0.9 % Sodium Chloride Mini Bag 100 ML IVPB SCH (14:54)
--- NOTE | 2017-01-16 15:53 | Internal Med History&Physical ---
Date of Encounter: 01/16/17 Time of Encounter: 15:25 Assessment and Plan (1) Acute exacerbation of chronic obstructive airways disease Current visit: Yes Status: Acute She has been started on Rocephin and doxycycline IV. I will add lactobacillus. Further workup will be done as needed. Internal Medicine - H&P: HPI Chief complaint: Dyspnea Admitted From: Home Plans for Post Hospital Care: Home History of present illness: Ms. Carmen is a 61 year old female who came to emergency room stating she had progressive dyspnea onset the evening of January 13. She reports receiving a flu shot earlier in the day. She had coughing productive of green/yellow/brown sputum. There was no hemoptysis. He had 4 episodes of vomiting since onset of the dyspnea. She was evaluated in the usual felt to have exacerbation of COPD. She was admitted to [facility] floor for ongoing care needs. He is been hospitalized several times at [facility] for the past few years with exacerbation of COPD. Her most recent hospitalization was May 2016. Her respiratory history is significant for having smoked from age [age] up to 2 packs per day. She has a diagnosis of COPD and wears oxygen at home 07/10. She has a diagnosis of SANDY and wear CPAP at bedtime. Her last chest CT was 2016 showed scar but no concerning adenopathy or masses. Past Med Surg Social Fam HX - Past Medical History Medical history: CHF, COPD, diabetes, hyperlipidemia, hypertension Psychiatric history: anxiety, bipolar - Past Surgical History Surgical History: cataract - Social History Smoking Status: Former smoker Smokeless Tobacco Status: No Alcohol use: none Drug use: none - Family History Mother Living Status: Hx Family Cardiac Disorders: Yes Hx Family Respiratory Disorders: Yes Hx Family Endocrine Disorder: Yes Internal Medicine - H&P: Meds Levalbuterol [Xopenex INH] 2 puff IH Q6H PRN 11/03/15 [History] Losartan [Cozaar] 25 mg PO DAILY 11/03/15 [History] Montelukast [Singulair] 10 mg PO DAILY 11/03/15 [History] Oxybutynin [Ditropan] 5 mg PO QPM 11/03/15 [History] Roflumilast [Daliresp] 500 mcg PO DAILY 11/03/15 [History] Salmeterol Xinafoate [Serevent Diskus] 1 puff IH BID 11/03/15 [History] Simvastatin [Zocor] 20 mg PO HS 11/03/15 [History] Tiotropium [Spiriva] 18 mcg IH DAILY 11/03/15 [History] Metoprolol XL (24 HR) Succ [Toprol Xl] 25 mg PO DAILY #30 tab.er.24h 11/07/15 [ Rx] BuPROPion SR (12 HR) [Wellbutrin SR] 150 mg PO BID 04/22/16 [History] DiphenhydraMINE [Benadryl] 25 mg PO DAILY 04/22/16 [History] Fluticasone Propionate Nasal [Flonase] 1 spray NS DAILY PRN 04/22/16 [History] HYDROcodone/Acet 7.5/325 mg [[place] 7.5-325 mg] 1 tab PO Q6H PRN 04/22/16 [ History] Metformin HCl [Glucophage] 1,000 mg PO BID 04/22/16 [History] Nystatin POWDER [Nystop] 1 appl TP DAILY PRN 04/22/16 [History] Potassium Chloride [Klor-Con 10] 10 meq PO DAILY 04/22/16 [History] Ranitidine HCl [Zantac] 150 mg PO BID 04/22/16 [History] Sertraline [Zoloft] 100 mg PO HS 04/22/16 [History] Furosemide [Lasix] 20 mg PO DAILY #0 05/19/16 [Rx] Azithromycin [Zithromax] 250 mg PO DAILY 09/26/16 [History] Cholecalciferol (D-3) [Vitamin D] 5,000 unit PO DAILY 09/26/16 [History] Levalbuterol HCl [Xopenex] 1.25 mg IH QID PRN 09/26/16 [History] Oxygen 3 l .ROUTE AD 09/26/16 [History] clonazePAM [Klonopin] 0.5 mg PO HS 09/26/16 [History] 3 Allergy/AdvReac Type Severity Reaction Status Date / Time acetylcysteine AdvReac Hives Verified 01/16/17 09:45 [From Mucomyst] ciprofloxacin [From Cipro] AdvReac Hives Verified 01/16/17 09:45 clarithromycin [From Biaxin] AdvReac see comment Verified 01/16/17 09:45 Erythromycin Base AdvReac Hives Verified 01/16/17 09:45 fluticasone AdvReac Hives Verified 01/16/17 09:45 [From Advair Diskus] lorazepam [From Ativan] AdvReac Hives Verified 01/16/17 09:45 salmeterol AdvReac Hives Verified 01/16/17 09:45 [From Advair Diskus] All Systems PM: A 10-system review of systems was performed and is negative for pertinent findings except as documented above in the HPI. Review of systems: Review of systems from her May 2016 [facility] admission were reviewed and revised as below. Gen.: Her weight has decreased from approximately 74 kg May 2016 hospitalization to admission weight of approximately 59 kg now. Cardiovascular: She has history of hypertension and congestive heart failure. She claims she had a heart catheter approximately 2010 at [facility] that did not require further intervention. She denies DVT or pulmonary embolus Respiratory: As per history of present illness GI: She had cholecystectomy earlier this year. She denies disorders of her liver or exocrine pancreas : She denies hematuria dysuria or kidney stones Neurologic: She denies large distribution strokes or seizures Endocrine: She was diagnosed with DM 2 approximately 2001. Hemoglobin A1c was 5.7% on 09/24/2016. She has hyperlipidemia but no known thyroid disease Hematology/oncology: She denies blood disorders or cancers. She had anemia in the past and was prescribed ferrous sulfate and vitamin C. Psychiatric: She has anxiety and depression Musk skeletal: She has DJD. She has had steroid injections in her knees and shoulders. - Constitutional Vitals: Temp Pulse Resp BP Pulse Ox 98.4 F 120 18 139/81 95 01/16/17 12:32 01/16/17 12:32 01/16/17 12:32 01/16/17 12:32 01/16/17 12:32 Exam: Gen.: She is a well developed well-nourished female who appears in no acute distress HEENT: Head is atraumatic and normocephalic. Eyes: EOMI. There is no scleral icterus. Mouth: Mucosa is moist. Neck: Supple and nontender. There is no thyromegaly or adenopathy noted. Heart: Regular without murmurs gallops or ectopics. Lungs: No wheezing or crackles are heard. She has egophony in the right posterior midlung field. Abdomen: Soft and nontender. No masses or guarding are noted. Extremities: There is no cyanosis edema or clubbing noted. Dorsalis pedis and posterior tibial pulses are trace to 1+ palpable bilaterally. Neurologic: Mental status: She is talkative and a good historian. Cranial nerves: Smile is symmetric. Forehead wrinkles bilaterally. Tongue protrudes midline. EOMI. Motor: There is no pronator drift. Cerebellar: Fair to nose is intact bilaterally. Skin: Warm and dry Internal Med - H&P Results - Labs CBC & Chem 7: 01/16/17 10:24 01/16/17 10:24
[2017-01-16] MEDS ORDERED: clonazePAM 0.5 MG TABLET PO STA (16:01)
[2017-01-16] MEDS: *HR* HYDROcodone/Acet 7.5/325 mg TABLET PO SCH (16:07)
[2017-01-16] MEDS ORDERED: 0.45 % Sodium Chloride w/KCl 20 MEQ/1,000 ML MLS IVC SCH (16:30)
[2017-01-16] MEDS: *HR* Metformin 500 MG TABLET PO SCH (16:31)
[2017-01-16] MEDS ORDERED: predniSONE 20 MG TABLET PO SCH (17:00)
[2017-01-16] MEDS: Lactobacillus 1 EACH CAP.SPRINK PO SCH (19:52)
[2017-01-16] MEDS: Famotidine 20 MG TABLET PO SCH (19:52)
[2017-01-16] MEDS: BuPROPion XL (24 HR) 150 MG TABLET PO SCH (19:53)
[2017-01-16] MEDS: Levalbuterol Neb 1.25 MG/3 ML IH PRN (21:53)
[2017-01-16] MEDS: FLOVENT 220 MCG IH SCH (21:54)
[2017-01-16] MEDS: SEREVENT IH SCH (21:54)
[2017-01-16] MEDS: Beclomethasone 80mcg MDI IH SCH (22:03)
[2017-01-16] MEDS: clonazePAM 0.5 MG TABLET PO SCH (22:32)
[2017-01-17] MEDS: *HR* HYDROcodone/Acet 7.5/325 mg TABLET PO SCH ×3 (00:25→16:22)
[2017-01-17] MEDS: Doxycycline 100 MG in 0.9 % Sodium Chloride Mini Bag 100 ML IVPB SCH ×2 (01:23→14:30)
[2017-01-17 05:57] LABS: Basophils % 0.2 %; Hematocrit 29.8 % (35.3-44.9); Hemoglobin 9.7 g/dL (11.5-15.4); Immature Granulocytes % 1.4 % (0-4); Lymphocytes # 1.3 K/mcL (0.6-4.6); Lymphocytes % 11.7 %; Mean Corpuscular HGB Conc 32.6 g/dL (31.6-35.5); Mean Corpuscular Hemoglobin 28.2 pg (28.0-33.3); Mean Corpuscular Volume 86.6 fL (83.0-100.0); Mean Platelet Volume 9.7 fL (9.4-12.4); Monocytes # 1.1 K/mcL (0.0-1.3); Monocytes % 9.4 %; Platelet Count 408 K/mcL (140-400); Red Blood Count 3.44 M/mcL (3.82-4.97); Red Cell Distribution Width 14.1 % (11.5-14.5); Segmented Neutrophils % 77.3 %
[2017-01-17 06:00] LABS: Neutrophils # 8.7 K/mcL (1.6-8.9)
[2017-01-17 06:15] LABS: BUN/Creatinine Ratio 19 (6-26); Blood Urea Nitrogen 13 mg/dL (7-20); Calcium 9.5 mg/dL (8.6-10.8); Carbon Dioxide 24 mEq/L (19-29); Chloride 105 mEq/L (98-109); Glucose 242 mg/dL (70-99); Osmolality,Calculated 298 (280-300); Potassium 3.7 mEq/L (3.5-4.5); Sodium 140 mEq/L (136-145); eGFR For African Americans > 60 (> 60); eGFR For Non-African Americans > 60 (> 60)
[2017-01-17] MEDS: Lactobacillus 1 EACH CAP.SPRINK PO SCH ×2 (07:51→21:09)
[2017-01-17] MEDS: BuPROPion XL (24 HR) 150 MG TABLET PO SCH ×2 (07:51→21:10)
[2017-01-17] MEDS: *HR* Metformin 500 MG TABLET PO SCH ×2 (07:51→16:22)
[2017-01-17] MEDS: amLODIPine 5 MG TABLET PO SCH (07:51)
[2017-01-17] MEDS: Furosemide 20 MG TABLET PO SCH (07:52)
[2017-01-17] MEDS: Metoprolol XL (24 HR) Succ 25 MG TAB.ER.24H PO SCH (07:52)
[2017-01-17] MEDS: Famotidine 20 MG TABLET PO SCH ×2 (07:52→21:10)
[2017-01-17] MEDS: DALIRESP PO SCH (08:05)
[2017-01-17] MEDS: FLOVENT 220 MCG IH SCH (08:06)
[2017-01-17] MEDS: SEREVENT IH SCH ×2 (08:06→21:05)
[2017-01-17] MEDS: Insulin LISPRO 300 UNITS/3 ML VIAL SQ SCH ×4 (08:07→21:07)
[2017-01-17] MEDS: Tiotropium 18 MCG inhalation IH SCH (08:22)
[2017-01-17] MEDS: Levalbuterol Neb 1.25 MG/3 ML IH PRN ×2 (08:22→21:01)
[2017-01-17] MEDS: Beclomethasone 80mcg MDI IH SCH ×2 (08:23→21:11)
[2017-01-17] MEDS ORDERED: Azithromycin 250 MG TABLET PO SCH (09:00)
--- NOTE | 2017-01-17 10:17 | Internal Med Progress Note ---
Date of Encounter: 01/17/17 Time of Encounter: 10:08 - Assessment and plan (1) Acute exacerbation of chronic obstructive airways disease Current Visit: Yes Status: Acute Assessment and plan: January 17. Continue present regimen. Anticipate discharge home tomorrow if stable. - Subjective Interval history: January 17. She has no new complaints. She states she feels better but not back to her baseline. - Constitutional Vitals: Temp Pulse Resp BP Pulse Ox 97.8 F 103 17 117/75 100 01/17/17 06:45 01/17/17 06:45 01/17/17 08:25 01/17/17 06:45 01/17/17 08:25 Exam: She is sitting on the side of bed and appears to be resting comfortably. She does not have labored respirations when she speaks. Her affect is bright and cheerful. I reviewed her medications and lab results. Internal Medicine: Result - Labs CBC & Chem 7: 01/17/17 04:54 01/17/17 04:54 Labs: Short CBC 01/17/17 Range/Units 04:54 WBC 11.3 H (4.3-11.1) K/mcL Hgb 9.7 L D (11.5-15.4) g/dL Hct 29.8 L (35.3-44.9) % Plt Count 408 H (140-400) K/mcL Neutrophils # 8.7 (1.6-8.9) K/mcL BMP 01/17/17 04:54 Sodium 140 Potassium 3.7 Chloride 105 Carbon Dioxide 24 BUN 13 Creatinine 0.70 Glucose 242 H Calcium 9.5 - ABG Interpretation ABG results: PT/INR, D-dimer PT 12.5 Seconds (9.4-12.1) H 01/16/17 10:24 - VTE Documentation of Mechanical Device: Graduated compression elastic hosiery Consult Discharge Plan - Plan Referrals: Amanda Ballesteros [Primary Care Provider] - 1 week
[2017-01-17] MEDS: 0.45 % Sodium Chloride w/KCl 20 MEQ/1,000 ML MLS IVC SCH (12:38)
[2017-01-17] MEDS: clonazePAM 0.5 MG TABLET PO SCH (21:09)
[2017-01-18] MEDS: *HR* HYDROcodone/Acet 7.5/325 mg TABLET PO SCH ×2 (03:24→11:27)
[2017-01-18] MEDS: 0.45 % Sodium Chloride w/KCl 20 MEQ/1,000 ML MLS IVC SCH (03:25)
[2017-01-18] MEDS: Doxycycline 100 MG in 0.9 % Sodium Chloride Mini Bag 100 ML IVPB SCH (03:26)
[2017-01-18 05:28] LABS: Basophils % 0.3 %; Eosinophils # 0.2 K/mcL (0.0-0.6); Eosinophils % 1.7 %; Hematocrit 28.7 % (35.3-44.9); Hemoglobin 9.3 g/dL (11.5-15.4); Immature Granulocytes % 1.6 % (0-4); Lymphocytes # 4.4 K/mcL (0.6-4.6); Lymphocytes % 38.1 %; Mean Corpuscular HGB Conc 32.4 g/dL (31.6-35.5); Mean Corpuscular Hemoglobin 28.5 pg (28.0-33.3); Mean Platelet Volume 9.7 fL (9.4-12.4); Monocytes # 1.2 K/mcL (0.0-1.3); Monocytes % 10.6 %; Neutrophils # 5.5 K/mcL (1.6-8.9); Platelet Count 447 K/mcL (140-400); Red Blood Count 3.26 M/mcL (3.82-4.97); Red Cell Distribution Width 14.6 % (11.5-14.5); Segmented Neutrophils % 47.7 %
[2017-01-18] MEDS: Insulin LISPRO 300 UNITS/3 ML VIAL SQ SCH ×2 (07:24→11:25)
[2017-01-18] MEDS: *HR* Metformin 500 MG TABLET PO SCH (07:35)
[2017-01-18] MEDS: Tiotropium 18 MCG inhalation IH SCH (08:04)
[2017-01-18] MEDS: Levalbuterol Neb 1.25 MG/3 ML IH PRN (08:06)
[2017-01-18] MEDS: Lactobacillus 1 EACH CAP.SPRINK PO SCH (08:50)
[2017-01-18] MEDS: Furosemide 20 MG TABLET PO SCH (08:51)
[2017-01-18] MEDS: Famotidine 20 MG TABLET PO SCH (08:52)
[2017-01-18] MEDS: amLODIPine 5 MG TABLET PO SCH (08:52)
[2017-01-18] MEDS: BuPROPion XL (24 HR) 150 MG TABLET PO SCH (08:53)
[2017-01-18] MEDS: Metoprolol XL (24 HR) Succ 25 MG TAB.ER.24H PO SCH (08:53)
[2017-01-18] MEDS: DALIRESP PO SCH (08:57)
[2017-01-18 10:51] VITALS: BP 121/61
--- NOTE | 2017-01-18 11:09 | Electrocardiograph Report ---
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
[2017-01-18] MEDS: SEREVENT IH SCH (11:22)
[2017-01-18] MEDS: Beclomethasone 80mcg MDI IH SCH (11:24)
--- NOTE | 2017-01-18 14:35 | Discharge Summary ---
Date of Encounter: 01/18/17 Time of Encounter: 14:25 - Discharge Diagnosis (1) Acute exacerbation of chronic obstructive airways disease Priority: Primary Status: Acute - Discharge Medications Prescriptions: Cefuroxime PO [Ceftin] 500 mg PO Q12HR #4 tablet Doxycycline 100 mg PO BID #4 capsule Lactobacillus [Culturelle] 1 each PO BID #4 cap.sprink Home Medications: Levalbuterol [Xopenex INH] 2 puff IH Q6H PRN 11/03/15 [History] Losartan [Cozaar] 25 mg PO DAILY 11/03/15 [History] Montelukast [Singulair] 10 mg PO DAILY 11/03/15 [History] Oxybutynin [Ditropan] 5 mg PO QPM 11/03/15 [History] Roflumilast [Daliresp] 500 mcg PO DAILY 11/03/15 [History] Salmeterol Xinafoate [Serevent Diskus] 1 puff IH BID 11/03/15 [History] Simvastatin [Zocor] 20 mg PO HS 11/03/15 [History] Tiotropium [Spiriva] 18 mcg IH DAILY 11/03/15 [History] Metoprolol XL (24 HR) Succ [Toprol Xl] 25 mg PO DAILY #30 tab.er.24h 11/07/15 [ Rx] BuPROPion SR (12 HR) [Wellbutrin SR] 150 mg PO BID 04/22/16 [History] DiphenhydraMINE [Benadryl] 25 mg PO DAILY 04/22/16 [History] Fluticasone Propionate Nasal [Flonase] 1 spray NS DAILY PRN 04/22/16 [History] HYDROcodone/Acet 7.5/325 mg [[place] 7.5-325 mg] 1 tab PO Q6H PRN 04/22/16 [ History] Metformin HCl [Glucophage] 1,000 mg PO BID 04/22/16 [History] Nystatin POWDER [Nystop] 1 appl TP DAILY PRN 04/22/16 [History] Potassium Chloride [Klor-Con 10] 10 meq PO DAILY 04/22/16 [History] Ranitidine HCl [Zantac] 150 mg PO BID 04/22/16 [History] Sertraline [Zoloft] 100 mg PO HS 04/22/16 [History] Furosemide [Lasix] 20 mg PO DAILY #0 05/19/16 [Rx] Azithromycin [Zithromax] 250 mg PO DAILY 09/26/16 [History] Cholecalciferol (D-3) [Vitamin D] 5,000 unit PO DAILY 09/26/16 [History] Levalbuterol HCl [Xopenex] 1.25 mg IH QID PRN 09/26/16 [History] Oxygen 3 l .ROUTE AD 09/26/16 [History] clonazePAM [Klonopin] 0.5 mg PO HS 09/26/16 [History] Cefuroxime PO [Ceftin] 500 mg PO Q12HR #4 tablet 01/18/17 [Rx] Doxycycline 100 mg PO BID #4 capsule 01/18/17 [Rx] Lactobacillus [Culturelle] 1 each PO BID #4 cap.sprink 01/18/17 [Rx] Allergies/Adverse Reactions: 3 Allergy/AdvReac Type Severity Reaction Status Date / Time acetylcysteine AdvReac Hives Verified 01/16/17 09:45 [From Mucomyst] ciprofloxacin [From Cipro] AdvReac Hives Verified 01/16/17 09:45 clarithromycin [From Biaxin] AdvReac see comment Verified 01/16/17 09:45 Erythromycin Base AdvReac Hives Verified 01/16/17 09:45 fluticasone AdvReac Hives Verified 01/16/17 09:45 [From Advair Diskus] lorazepam [From Ativan] AdvReac Hives Verified 01/16/17 09:45 salmeterol AdvReac Hives Verified 01/16/17 09:45 [From Advair Diskus] Date of admission: 01/16/17 11:45 Primary care physician: Amanda Arnold Consults: 01/16/17 12:47 Consult to Nutrition [CONS] Routine Comment: Consulting Provider: NUTRITION Reason for Dietary Consult: MST Score - Patient Status Disposition: Home, Self-Care Condition: Fair Functional capacity at discharge: independent ambulation Overall status at discharge: patient is progressing back to baseline - Discharge Instructions Follow Up With: Amanda Ballesteros [Primary Care Provider] - 1 week - Diet and Activity Activity: resume usual activities as tolerated Diet: advance to your usual diet Hospital course: Ms. Carmen is a 61 year old female who came to emergency room stating she had progressive dyspnea onset the evening of January 13. She reports receiving a flu shot earlier in the day. She had coughing productive of green/yellow/ brown sputum. There was no hemoptysis. He had 4 episodes of vomiting since onset of the dyspnea. She was evaluated in the usual felt to have exacerbation of COPD. She was admitted to [facility] floor for ongoing care needs. Initial orders were written by the emergency room physician. I saw her on January 16 and performed the history and physical. She was started on Rocephin and doxycycline IV. Lactobacillus was also given. She had gradual improvement in symptoms and felt back to her baseline by January 18. WBC improved to 11.6 with resolution of the left shift by day of discharge. She will follow with her PCP Amanda Arnold CNP within 1 week. She will continue with antibiotics and probiotics for 2 additional days after discharge. - Time Spent with Patient Total time spent providing and/or coordinating discharge services: - Constitutional Vitals: Temp Pulse Resp BP Pulse Ox 98.2 F 99 18 121/61 99 01/18/17 10:50 01/18/17 10:50 01/18/17 10:50 01/18/17 10:50 01/18/17 10:50 - VTE Documentation of Mechanical Device: Graduated compression elastic hosiery
--- NOTE | 2017-01-18 15:32 | Physician Discharge Referral ---
Home Health/Hosp Referral Info Transfer to: Home Health Attending Provider: Korey Provider in Charge Post Discharge: PCP (Amanda Arnold CNP) - Diagnosis (1) Acute exacerbation of chronic obstructive airways disease Priority: Primary Status: Acute - Respiratory Orders Oxygen / L per min (2 L/m nasal cannula 24/ to keep sat greater than 90%) Smoking Cessation: Smoking cessation has been advised. For more information, call the [place] Tobacco Quit Line at 6-026-PAOP-NOW. - Diet/Nutrition Diet/Nutrition Orders: Regular - Activity Activity Orders: Ambulate - Services Needed Following services are medically necessary services: Nursing, Home Health Aide, Physical Therapy, Occupational Therapy - Transfer Medications Prescriptions: Cefuroxime PO [Ceftin] 500 mg PO Q12HR #4 tablet Doxycycline 100 mg PO BID #4 capsule Lactobacillus [Culturelle] 1 each PO BID #4 cap.sprink Home Medications: Levalbuterol [Xopenex INH] 2 puff IH Q6H PRN 11/03/15 [History] Losartan [Cozaar] 25 mg PO DAILY 11/03/15 [History] Montelukast [Singulair] 10 mg PO DAILY 11/03/15 [History] Oxybutynin [Ditropan] 5 mg PO QPM 11/03/15 [History] Roflumilast [Daliresp] 500 mcg PO DAILY 11/03/15 [History] Salmeterol Xinafoate [Serevent Diskus] 1 puff IH BID 11/03/15 [History] Simvastatin [Zocor] 20 mg PO HS 11/03/15 [History] Tiotropium [Spiriva] 18 mcg IH DAILY 11/03/15 [History] Metoprolol XL (24 HR) Succ [Toprol Xl] 25 mg PO DAILY #30 tab.er.24h 11/07/15 [ Rx] BuPROPion SR (12 HR) [Wellbutrin SR] 150 mg PO BID 04/22/16 [History] DiphenhydraMINE [Benadryl] 25 mg PO DAILY 04/22/16 [History] Fluticasone Propionate Nasal [Flonase] 1 spray NS DAILY PRN 04/22/16 [History] HYDROcodone/Acet 7.5/325 mg [[place] 7.5-325 mg] 1 tab PO Q6H PRN 04/22/16 [ History] Metformin HCl [Glucophage] 1,000 mg PO BID 04/22/16 [History] Nystatin POWDER [Nystop] 1 appl TP DAILY PRN 04/22/16 [History] Potassium Chloride [Klor-Con 10] 10 meq PO DAILY 04/22/16 [History] Ranitidine HCl [Zantac] 150 mg PO BID 04/22/16 [History] Sertraline [Zoloft] 100 mg PO HS 04/22/16 [History] Furosemide [Lasix] 20 mg PO DAILY #0 05/19/16 [Rx] Azithromycin [Zithromax] 250 mg PO DAILY 09/26/16 [History] Cholecalciferol (D-3) [Vitamin D] 5,000 unit PO DAILY 09/26/16 [History] Levalbuterol HCl [Xopenex] 1.25 mg IH QID PRN 09/26/16 [History] Oxygen 3 l .ROUTE AD 09/26/16 [History] clonazePAM [Klonopin] 0.5 mg PO HS 09/26/16 [History] Cefuroxime PO [Ceftin] 500 mg PO Q12HR #4 tablet 01/18/17 [Rx] Doxycycline 100 mg PO BID #4 capsule 01/18/17 [Rx] Lactobacillus [Culturelle] 1 each PO BID #4 cap.sprink 01/18/17 [Rx] Allergies/Adverse Reactions: 3 Allergy/AdvReac Type Severity Reaction Status Date / Time acetylcysteine AdvReac Hives Verified 01/16/17 09:45 [From Mucomyst] ciprofloxacin [From Cipro] AdvReac Hives Verified 01/16/17 09:45 clarithromycin [From Biaxin] AdvReac see comment Verified 01/16/17 09:45 Erythromycin Base AdvReac Hives Verified 01/16/17 09:45 fluticasone AdvReac Hives Verified 01/16/17 09:45 [From Advair Diskus] lorazepam [From Ativan] AdvReac Hives Verified 01/16/17 09:45 salmeterol AdvReac Hives Verified 01/16/17 09:45 [From Advair Diskus] Certification: Further, I certify that my clinical findings support that this patient is homebound (i.e. absences from home require considerable and taxing effort and are for medical reasons or latter-day services or infrequently or short duration when for other reasons) because: Homebound Reason: Leaving home requires considerable and taxing effort due to condition (Severe COPD with deconditioning) Attestation: My signature below is to certify that this patient is under my care and that I, or nurse practitioner, or a physician's apartment assistant manager working with me, has a face-to -face encounter with this patient.
== END 2017-01-18 15:25 | disposition home health service (06) ==
LOC: INPPIK 09:43 → EMEROOPIK 09:43 → INPPIK 11:55
PROVIDERS: ADMIT Internal Medicine; ATTEND Internal Medicine